=== PATIENT | male | born 1960 | race Caucasian/White ===

== ENCOUNTER 2023-05-25 07:55 | Outpatient (OUT) | payer OTHER, SELFPAY ==
--- NOTE | 2023-05-25 08:01 | US_ITS ---
The [address] [address] Patient Name: NELI TINSLEY MRN: [id number] date: 1960 Sex: M Assigned Patient Location: [place] Current Patient Location: [place] Accession/Order Number: [id number] Exam Date: 05/25/2023 08:02 Report Date: 05/25/2023 08:48 At the request of: ALTA ROBERTO Procedure: US abdominal aortic aneurysm EXAM: US abdominal aortic aneurysm HISTORY: . Abdominal Aortic Aneurysm I71.40 . COMPARISON: 05/02/2022 TECHNIQUE: Grayscale and color imaging was performed FINDINGS: Scanning of the aorta demonstrates the proximal aorta to measure 1.7 x 2.3 cm, mid aorta 2.6 x 2.6 cm, and the distal aorta 4.5 x 3.4 cm. Color-flow is noted throughout the aorta. Right iliac measures 1.4 cm and left iliac 1.3 cm. US/US abdominal aortic aneurysm IMPRESSION: Aneurysmal dilatation of the distal abdominal aorta which measures 4.5 x 3.4 cm. On the previous exam the distal aorta measured 4.2 x 4.6 cm. Electronically authenticated by: NIKO PONCE Date: 05/25/2023 08:48
== END 2023-05-25 07:56 | disposition home or self-care (01) ==
LOC: US 07:55
PROVIDERS: PCP Nurse Practitioner Family; Visit Provider Nurse Practitioner Family
DX: I71.40 Abdominal aortic aneurysm, without rupture, unspecified (principal)
CPT/HCPCS: 76775

== ENCOUNTER 2023-10-20 07:37 | Outpatient (OUT) | payer OTHER, SELFPAY ==
--- OUTSIDE RECORDS SUMMARY | 2023-10-20 07:42 | XMS_ITS ---
Patient Summarization (C-CDA 2.1 CCD) Created on: October 20, 2023 Mino Vanessa : 1960 Sex: Male Author Organization Sample organization Care Team Providers Care Wood Machinist Name Role Phone KIMMIE ROBERTO Primary Care Unavailable ABBAS, DR VILLARREAL Admitting Unavailable ABBAS, DR VILLARREAL Attending Unavailable ABBAS, DR VILLARREAL Consulting Unavailable CURT, DR NIKO Vasquez Consulting Unavailable FELISA, KIMMIE Attending Unavailable FELISA, KIMMIE Consulting Unavailable FELISA, KIMMIE Primary Care Unavailable FELISA, KIMMIE Admitting Unavailable FELISA, KIMMIE Attending Unavailable FELISA, KIMMIE Consulting Unavailable FELISA, KIMMIE Primary Care Unavailable FELISA, KIMMIE Admitting Unavailable FELISA, KIMMIE Attending Unavailable FELISA, KIMMIE Consulting Unavailable FELISA, KIMMIE Primary Care Unavailable FELISA, KIMMIE Admitting Unavailable MARY GARCIA Consulting Unavailable FELISA, KIMMIE Attending Unavailable FELISA, KIMMIE Consulting Unavailable FELISA, KIMMIE Primary Care Unavailable FELISA, KIMMIE Admitting Unavailable FELISA, KIMMIE Admitting Unavailable FELISA, KIMMIE Attending Unavailable FELISA, KIMMIE Primary Care Unavailable FELISA, KIMMIE Attending Unavailable FELISA, KIMMIE Consulting Unavailable FELISA, KIMMIE Primary Care Unavailable FELISA, KIMMIE Admitting Unavailable ABBAS, DR VILLARREAL Admitting Unavailable ABBAS, DR VILLARREAL Attending Unavailable ABBAS, DR VILLARREAL Consulting Unavailable FELISA, KIMMIE Primary Care Unavailable [place], DR NIKO Vasquez Consulting Unavailable Felisa, [employer] Kimmie Hernandez Primary Care Provider [phone] SARAH Jack Attending Provider Kimmie Roberto Primary Care Unavailable Leyda Jack Attending Unavailable Leyda Jack Admitting Unavailable Encounters Encounter Date Encounter Type Care Provider Facility Start: 10-07-2023 End: 10-07-2023 ambulatory [employer] Kimmie Roberto Work Phone: [facility] Work Phone: Start: 10-07-2023 End: 10-07-2023 Departed Referred [employer] Kimmie Roberto Work Phone: [facility] [place] Work Phone: Start: 10-07-2023 End: 10-07-2023 ambulatory [facility] Work Phone: Start: 10-07-2023 End: 10-07-2023 Patient encounter procedure [facility] Work Phone: Start: 05-02-2022 End: 05-03-[address] CHERELLE LARSEN Facility:[facility] Start: 02-07-2022 ambulatory KIMMIE ROBERTO Facility: [facility] Start: 02-01-2022 End: 02-01-2022 ambulatory KIMMIE ROBERTO Facility:[facility] Start: 01-24-2022 End: 01-24-2022 ambulatory KIMMIE ROBERTO Facility:[facility] Start: 01-20-2022 End: 01-21-2022 ambulatory KIMMIE ROBERTO Facility:[facility] Start: 12-20-2021 End: 12-20-2021 ambulatory KIMMIE ROBERTO Facility:[facility] Start: 05-11-2021 Encounter for genera l adult medical examination without abnormal findings KIMMIE ROBERTO [facility] Start: 05-10-2021 End: 05-11-2021 ambulatory KIMMIE ROBERTO Facility:[facility]1 Start: 05-10-2021 End: 05-11-2021 Encounter for general adult medical examination without abnormal findings KIMMIE ROBERTO Facility:[facility]1 Medications Current Medications Medication Drug Class(es) Dates Sig (Normalized) Sig (Original) amoxicillin 500 mg / clavulanate 125 mg oral tablet (2 sources) Penicillin-class Antibacterial Start: 10-07-2023 take 1 tablet by mouth three times daily Amoxicillin-Pot Clavulanate Active 1 TAB PO Three times daily 30 October 07, 2023 12:00am aspirin 81 mg delayed release oral tablet (2 sources) Platelet Aggregation Inhibitor, Nonsteroidal Anti-inflammatory Drug Start: 10-07-2023 take 81 mg by mouth once daily Aspirin Active 81 MG PO Daily October 07, 2023 12:00am atorvastatin 40 mg oral tablet (2 sources) HMG-CoA Reductase Inhibitor Start: 10-07-2023 take 40 mg by mouth once daily at bedtime Atorvastatin Active 40 MG PO Daily at bedtime October 07, 2023 12:00am glimepiride 4 mg oral tablet (2 sources) Sulfonylurea Start: 10-07-2023 take 4 mg by mouth once daily Glimepiride Active 4 MG PO Daily October 07, 2023 12:00am lisinopril 5 mg oral tablet (2 sources) Angiotensin Converting Enzyme Inhibitor Start: 10-07-2023 take 5 mg by mouth once daily Lisinopril Active 5 MG PO Daily October 07, 2023 12:00am metFORMIN hydrochloride 500 mg oral tablet (2 sources) Biguanide Start: 10-07-2023 take 500 mg by mouth twice daily at mealtime Metformin Active 500 MG PO Twice daily with meals October 07, 2023 12:00am Payers Date Payer Category Payer Self-pay 1961 Self-pay [id number] 1961 Unknown [id number] 1960 Unknown [id number] 2.16.84 [id number] 1960 Unknown [id number] 2.16.84 [id number] 1960 Unknown [id number] 2.16.84 [id number] 1960 Unknown [id number] 2.16.84 [id number] 1960 Unknown [id number] 2.16.84 [id number] 1960 Unknown [id number] 2.16.84 [id number] 1960 Unknown [id number] 2.16.84 [id number] 1960 Unknown [id number] 2.16.84 [id number] Unknown [id number] 2.16.8 [id number] Plan of Treatment Date Care Activity Detail Author Start: 10-08-2023 [facility] Start: 10-07-2023 Microscopic observat ion [Identifier] in Unspecified specimen by Gram stain [facility] Bacteria identified in Unspecified specimen by Aerobe culture [facility] Bacteria identified in Unspecified specimen by Anaerobe culture [facility] Problems Active Problems Problem Classification Problem Date Documented Da te Episodic/Chronic Aortic; peripheral; and visceral artery aneurysms (5 sources) Abdominal aortic aneurysm, without rupture; Translations: [ABDOMINAL AORTIC ANEUR W/O RUPTURED] Onset: 05-10-2021 Chronic Skin and subcutaneous tissue infections (5 sources) Abscess of buttock; Translations: [Cutaneous abscess of buttock] Onset: 10-07-2023 10-07-2023 Episodic Unclassified (3 sources) ABDOMINAL AA W/O RUPTURE UNSPCIFIED; Translations: [ABDOMINAL AA W/O RUPTURE UNSPCIFIED] Onset: 05-04-2022 Unclassified (3 sources) CONTACT W/AND (SUSP) EXPOS COVID-19; Translations: [CONTACT W/AND (SUSP) EXPOS COVID-19] Onset: 02-03-2022 Unclassified (3 sources) COUGH, UNSPECIFIED; Translations: [COUGH, UNSPECIFIED] Onset: 01-23-2022 Past or Other Problems Problem Classification Problem Date Documented Da te Episodic/Chronic Other screening for suspected conditions (not mental disorders or infectious disease) (1 source) Encounter for screening for malignant neoplasm of prostate; Translations: [ENC SCREEN MALIG NEOPLASM PROSTATE] Onset: 05-11-2021 Episodic Pneumonia (except that caused by tuberculosis or sexually transmitted disease) (1 source) Pneumonia, unspecified organism; Translations: [PNEUMONIA UNSPECIFIED ORGANISM] Onset: 01-23-2022 Episodic Unclassified (1 source) ABDOMINAL AA W/O RUPTURE UNSPCIFIED; Translations: [ABDOMINAL AA W/O RUPTURE UNSPCIFIED] Onset: 05-02-2022 Unclassified (1 source) CONTACT W/AND (SUSP) EXPOS COVID-19; Translations: [CONTACT W/AND (SUSP) EXPOS COVID-19] Onset: 02-01-2022 Unclassified (1 source) COUGH, UNSPECIFIED; Translations: [COUGH, UNSPECIFIED] Onset: 01-20-2022 Procedures Date Procedure Procedure Detail Performing Clinician Start: 05-10-2021 PSA screening KIMMIE PEREIRA Comment on above: Performed By: #### P [facility] ####[facility] Pnbanhjlkl13[address] StreetBooker Bianchi Results Test Name Value Interpretation Reference Range Facility Aerobic Cultureon 10-07-2023 Aerobic Culture (ABSCESS OF THE RIGH T BUTTOCK ) ORGANISM: Staphylococcus lugdunensis (O:STALUG) Quantity of Growth Moderate Growth (ABSCESS OF THE RIGHT BUTTOCK ) No Anaerobes Isolated 3 Days (ABSCESS OF THE RIGHT BUTTOCK ) Gram Stain Result 1+ White Blood Cells 1+ Gram Positive Cocci Aerobic JANELLE Charge (PCMIC38) --- SUSCEPTIBILITY -- ORGANISM: O:STALUG ANTIBIOTIC INTERPRETATION JANELLE Azithromycin S <2 Ciprofloxacin S <1 Clindamycin S <0.25 Daptomycin S <0.5 Levofloxacin S <1 Linezolid S <1 Oxacillin S 1 Penicillin ANABELLA >2 Tetracycline S <4 Trimethoprim/Sulfameth oxazole S <0.5 Vancomycin S 1 S = SUSCEPTIBLE I = INTERMEDIATE R = RESISTANT BLANK = DATA NOT AVAILABLE, OR DRUG NOT ADVISABLE OR TESTED R* = RESISTANCE DUE TO EXTENDED SPECTRUM BETA-LACTAMASES ESBL = EXTENDED SPECTRUM BETA-LACTAMASE TFG = THYMIDINE-DEPENDENT STRAIN ANABELLA = BETA-LACTAMASE POSITIVE IB = INDUCIBLE BETA-LACTAMASE. APPEARS IN PLACE OF 'S' WITH SPECIES KNOWN TO POSSESS INDUCIBLE BETA-LACTAMASES. POTENTIALLY THEY MAY BECOME RESISTANT TO ALL B-LACTAM DRUGS. PERFORMED BY: [place] [address] PATHOLOGIST MAJOR APPLIANCE ASSEMBLY SUPERVISOR SHAUN TORRES M.D. Normal [facility] Comment on above: Performed By: #### A [facility] #### [address] US ABD AORTA DIAGNOSTICon US ABD AORTA DIAGNOSTIC EXAMINATION: US ABD AORTA DIAGNOSTIC HISTORY: Abdominal aortic aneurysm COMPARISON: No relevant comparison available. TECHNIQUE: Ultrasound examination of the retroperitoneal area was performed, with a focused evaluation of the abdominal aorta. FINDINGS: Proximal aorta: 2.5 x 2.7 cm Mid aorta: 2.6 x 2.5 cm Distal aorta: 4.2 x 4.6 cm Right common iliac artery: 1.7 x 2.0 cm Left common iliac artery: 1.6 x 1.7 cm Normal color Doppler flow Mild to moderate soft and calcific atherosclerosis IMPRESSION: Fusiform aneurysm of the distal abdominal aorta measuring up to 4.2 x 4.6 cm Electronically authenticated by: NIKO ELIAS Date: 2022-05-02 11:16 Normal [facility] Covid-19 PCR (CVDTB)on 01-21 SARS-CoV-2 (COVID-19) RNA SUSANA+probe Ql (Unsp spec) Not detected Normal NOT DETECTED [facility] Comment on above: Result Comment: This test is not yet approved or cleared by the [place] FDA. When there are no FDA-approved or cleared tests available, and other criteria are met, FDA can make tests available under an emergency access mechanism called an Emergency Use Authorization (EUA). The EUA for this test is supported by the [place] of Health and Human Service's (HHS's) declaration that circumstances exist to justify the emergency use of in vitro diagnostics for the detection and/or diagnosis of the virus that causes COVID-19. This EUA will remain in effect (meaning this test can be used) for the duration of the COVID-19 declaration justifying emergency of IVDs, unless it is terminated or revoked by FDA (after which the test may no longer be used). When diagnostic testing is negative, the possibility of a false negative should be considered in the context of a patient's recent exposures and the presence of clinical signs and symptoms consistent with SARS-CoV-2. Performed By: #### [facility] #### [facility] [address] [place] [address] Dr. Vasyl Bianchi Covid-19 PCR (CVDTBH)on SARS-CoV-2 (COVID-19) RNA SUSANA+probe Ql (Unsp spec) Not detected Normal NOT DETECTED [facility] Comment on above: Result Comment: When diagnostic testing is negative, the possibility of a false negative should be considered in the context of a patient's recent exposures and the presence of clinical signs and symptoms consistent with SARS-CoV-2. This test is not yet approved or cleared by the [place] FDA. When there are no FDA-approved or cleared tests available, and other criteria are met, FDA can make tests available under an emergency access mechanism called an Emergency Use Authorization (EUA). The EUA for this test is supported by the [place] of Health and Human Service's declaration that circumstances exist to justify the emergency use of in vitro diagnostics for the detection and/or diagnosis of the virus that causes COVID-19. This EUA will remain in effect for the duration of the COVID-19 declaration justifying emergency of IVDs, unless it is terminated or revoked by the FDA (after which the test may no longer be used). Performed By: #### C [facility] #### [facility] [address] [place] [address] Dr. Vasyl Bianchi XR CHEST 2 Von 01-20-2022 XR CHEST 2 V EXAM: CHEST 2 VIEWS HISTORY: Cough TECHNIQUE: PA and lateral views chest. COMPARISON: 04/25/2021 FINDINGS: There is moderate size area of right middle lobe consolidation. The left lung is clear. No pleural effusion or pneumothorax. Pulmonary vasculature is within normal limits. The cardiomediastinal silhouette is normal. There is fusion instrumentation in the cervical spine. IMPRESSION: 1. Right middle lobe pneumonia. Recommend clinical and radiographic follow-up to resolution with treatment. Electronically authenticated by: MARY GARCIA Date: 2022-01-20 17:44 Normal [facility] PCR [facility]on 11-23 SARS-CoV-2 (COVID-19) RNA SUSANA+probe Ql (Unsp spec) Not detected Normal NOT DETECTED [facility] Comment on above: Result Comment: This test is not yet approved or cleared by the [place] FDA. When there are no FDA-approved or cleared tests available, and other criteria are met, FDA can make tests available under an emergency access mechanism called an Emergency Use Authorization (EUA). The EUA for this test is supported by the [place] of Health and Human Service's (HHS's) declaration that circumstances exist to justify the emergency use of in vitro diagnostics for the detection and/or diagnosis of the virus that causes COVID-19. This EUA will remain in effect (meaning this test can be used) for the duration of the COVID-19 declaration justifying emergency of IVDs, unless it is terminated or revoked by FDA (after which the test may no longer be used). When diagnostic testing is negative, the possibility of a false negative should be considered in the context of a patient's recent exposures and the presence of clinical signs and symptoms consistent with SARS-CoV-2. Performed By: #### C [facility] #### [facility] [address] [place] [address] Dr. Vasyl Bianchi INSULINon 05-11-2021 Insulin 17.0 uIU/mL Normal 2.6-24.9 [facility] Comment on above: Performed By: #### I NSULIN #### [facility] [address] [place] [address] Dr. Vasyl Bianchi CBC AUTO DIFFon 05-10-2021 BASO # 0.0 103/ul Normal 0.0-0.1 [facility] Comment on above: Performed By: #### C BC ####[facility] Z[address] [place], [place] [address]Dr. Vasyl Bianchi Basophils/100 WBC (Bld) 0.3 % Normal 0.2-2.0 [facility] Comment on above: Performed By: #### C BC ####[facility] [address] [place], [place] [address]DrBooker Bianchi EO # 0.2 103/ul Normal 0.0-0.7 [facility] Comment on above: Performed By: #### C BC ####[facility] Ldcstdiojy[address] [place], [place] [address]DrBooker Bianchi Eosinophils/100 WBC (Bld) 3.0 % Normal 0.9-7.0 [facility] Comment on above: Performed By: #### C BC ####[facility] [address] [place], [place] [address]DrBooker Bianchi Erythrocyte distribution width (RBC) [Ratio] 13.6 % Normal 11.0-15.0 [facility] Comment on above: Performed By: #### C BC ####[facility] [address] [place] [address]Dr. Vasyl Bianchi Hematocrit (Bld) [Volume fraction] 39.5 % Critically low 42.0-54.0 [facility] Comment on above: Performed By: #### C BC ####[facility] [address] [place] [address]Dr. Jillria Bianchi Hemoglobin (Bld) [Mass/Vol] 13.2 g/dL Critically low 14.0-18.0 [facility] Comment on above: Performed By: #### C BC ####[facility] L[address]yt[address]xt[address] [place], [place] [address]Dr. Vasyl Bianchi IG # 0.02 10e3/ul Normal 0.00-0.03 [facility] Comment on above: Performed By: #### C BC ####[facility] [address] [place], [place] [address]Dr. Vasyl Bianchi IG % 0.3 % Normal 0.0-0.5 [facility] Comment on above: Performed By: #### C BC ####[facility] Cmzegr[address]xm[address] [place], [place] [address]Dr. Jillria Bianchi LYMPH # 1.5 103/ul Normal 1.2-3.8 [facility] Comment on above: Performed By: #### C BC ####[facility] X[address] [place], [place] [address]Dr. Vasyl Bianchi Lymphocytes/100 WBC (Bld) 20.6 % Normal 20.5-60.0 [facility] Comment on above: Performed By: #### C BC ####[facility] [address] [place], [place] [address]Dr. Vasyl Bianchi MANUAL DIFF REQ NO Normal [facility] Comment on above: Performed By: #### C BC ####[facility] Vhin[address]qmwy[address] [place], [place] [address]DrBooker Bianchi MCH (RBC) [Entitic mass] 30.6 pg Normal 25.9-34.0 [facility] Comment on above: Performed By: #### C BC ####[facility] Ewmvomqwet[address] [place], [place] [address]Dr. Vasyl Arias MCHC (RBC) [Mass/Vol] 33.4 g/dL Normal 29.9-35.2 [facility] Comment on above: Performed By: #### C BC ####[facility] [address] [place] [address]Dr. Vasyl Bianchi MCV (RBC) [Entitic vol] 91.6 fL Normal 80.0-94.0 [facility] Comment on above: Performed By: #### C BC ####[facility] [address] [place] [address]Dr. Vasyl Bianchi MONO # 0.5 103/ul Normal 0.3-0.8 [facility] Comment on above: Performed By: #### C BC ####[facility] V[address]znbwxq[address] [place], [place] [address]Dr. Vasyl Bianchi Monocytes/100 WBC (Bld) 6.8 % Normal 1.7-12.0 [facility] Comment on above: Performed By: #### C BC ####[facility] [address] [place], [place] [address]Dr. Vasyl Bianchi NEUT # 5.1 103/ul Normal 1.4-6.5 [facility] Comment on above: Performed By: #### C BC ####[facility] U[address] [place], [place] [address]Dr. Vasyl Bianchi Neutrophils/100 WBC (Bld) 69.0 % Normal 43.0-75.0 [facility] Comment on above: Performed By: #### C BC ####[facility] I[address] [place], [place] [address]Dr. Vasyl Bianchi Platelet mean volume (Bld) [Entitic vol] 10.4 fL Normal 9.5-13.5 [facility] Comment on above: Performed By: #### C BC ####[facility] [address] [place], [place] [address]Dr. Vasyl Bianchi PLT 167 103/ul Normal 150-450 [facility] Comment on above: Performed By: #### C BC ####[facility] [address] [place] [address]Dr. Vasyl Bianchi RBC 4.31 106/ul Critically low 4.70-6.10 [facility] Comment on above: Performed By: #### C BC ####[facility] [address] [place], [place] [address]Dr. Vasyl Bianchi WBC 7.3 103/ul Normal 4.0-11.0 [facility] Comment on above: Performed By: #### C BC ####[facility] [address] [place] [id number]. Vasyl Bianchi GLYCOHEMOGLOBIN A1Con 2021 ADA RECOMMENDATION ADA THERAPEUTIC TARG ET 6.0 - 7.0 ACTION SUGGESTED > 7.0 Normal [facility] Comment on above: Performed By: #### A 1C #### [facility] [address] [place] [address] [address] Vasyl Bianchi Glucose [Mass/Vol] 235 mg/dL Normal [facility] Comment on above: Performed By: #### A 1C #### [facility] [address] [address] [address] Vasyl Bianchi HbA1c (Bld) [Mass fraction] 9.8 % Critically high <=6.0 [facility] Comment on above: Performed By: #### A 1C #### [facility] [address] [address] [address] Vasyl Bianchi LIPID PROFILEon 05-10-2021 CHOL-HDL RATIO NORM SEE BELOW Normal [facility] Comment on above: Result Comment: 3.3 - 4.4 LOW RISK 4.4 - 7.1 AVERAGE RISK 7.1 - 11.0 MODERATE RISK >11.0 HIGH RISK Performed By: #### C MP, LIPID #### [facility] [address] [address] [address] Vasyl Bianchi Cholesterol [Mass/Vol] 111 mg/dL Normal <=200 [facility] Comment on above: Performed By: #### C MP, LIPID #### [facility] [address] [address] [address] Vasyl Bianchi Cholesterol in HDL [Mass/Vol] 33 mg/dL Normal [facility] Comment on above: Performed By: #### C MP, LIPID #### [facility] [address] [address] [address] Vasyl Bianchi Cholesterol in LDL [Mass/Vol] 46.2 mg/dL Normal [facility] Comment on above: Performed By: #### C MP, LIPID #### [facility] [address] [address] [address] Vasyl Bianchi Cholesterol.total/Ch olesterol in HDL [Mass ratio] 3.4 {ratio} Normal [facility] Comment on above: Performed By: #### C MP, LIPID #### [facility] [address] [address] [address] Vasyl Bianchi HDL NORMAL > or = 60 mg/dl - LO W CARDIOVASCULAR RISK <40 mg/dl - HIGH CARDIOVASCULAR RISK Normal [facility] Comment on above: Performed By: #### C MP, LIPID #### [facility] [address] [place] [address] Dr. Vasyl Bianchi LDL CALC NORMAL SEE BELOW Normal [facility] Comment on above: Result Comment: <100 mg/dl OPTIMAL 100 - 129 mg/dl NEAR OR ABOVE OPTIMAL 130 - 159 mg/dl BORDERLINE HIGH 160 - 189 mg/dl HIGH >190 mg/dl VERY HIGH Performed By: #### C MP, LIPID #### [facility] [address] [place] [address] Dr. Vasyl Bianchi Triglyceride [Mass/Vol] 159 mg/dL Critically high <=150 [facility] Comment on above: Performed By: #### C MP, LIPID #### [facility] [address] [place] [address] Dr. Vasyl Bianchi VLDL CALC 31.8 mg/dL Normal [facility] Comment on above: Performed By: #### C MP, LIPID #### [facility] [address] [place] [address] Dr. Vasyl Bianchi PROF 14(COMP METB)on 022 Albumin [Mass/Vol] 3.6 g/dL Normal 3.5-5.0 [facility] Comment on above: Performed By: #### C MP, LIPID #### [facility] [address] [place] [address] Dr. Vasyl Bianchi Albumin/Globulin [Mass ratio] 1.0 {ratio} Normal [facility] Comment on above: Performed By: #### C MP, LIPID #### [facility] [address] [address] [address] Vasyl Bianchi ALP [Catalytic activity/Vol] 74 U/L Normal 38-126 [facility] Comment on above: Performed By: #### C MP, LIPID #### [facility] [address] [place] [address] Dr. Vasyl Bianchi ALT [Catalytic activity/Vol] 41 U/L Normal 21-72 [facility] Comment on above: Performed By: #### C MP, LIPID #### [facility] [address] [place] [address] Dr. Vasyl Bianchi Anion gap [Moles/Vol] 13.2 mmol/L Normal [facility] Comment on above: Performed By: #### C MP, LIPID #### [facility] [address] [place] [address] Dr. Vasyl Bianchi AST [Catalytic activity/Vol] 19 U/L Normal 17-59 [facility] Comment on above: Performed By: #### C MP, LIPID #### [facility] [address] [place] [address] Dr. Vasyl Bianchi Bilirubin [Mass/Vol] 1.1 mg/dL Normal 0.2-1.3 [facility] Comment on above: Performed By: #### C MP, LIPID #### [facility] [address] [place] [address] Dr. Vasyl Bianchi Calcium [Mass/Vol] 9.4 mg/dL Normal 8.4-10.2 [facility] Comment on above: Performed By: #### C MP, LIPID #### [facility] [address] [place] [address] Dr. Vasyl Bianchi Chloride [Moles/Vol] 102 mmol/L Normal 98-107 [facility] Comment on above: Performed By: #### C MP, LIPID #### [facility] Laboratory [address] [place], [place] [id number] Dr. Vasyl Bianchi CO2 [Moles/Vol] 28.0 mmol/L Normal 22.0-30.0 [facility] Comment on above: Performed By: #### C MP, LIPID #### [facility] [address] [place] [address] Dr. Vasyl Bianchi Creatinine [Mass/Vol] 1.11 mg/dL Normal 0.66-1.25 [facility] Comment on above: Performed By: #### C MP, LIPID #### [facility] [address] [place] [address] Dr. Vasyl Bianchi EGFR-AF WALLISIAN >60 Normal >=60 [facility] Comment on above: Performed By: #### C MP, LIPID #### [facility] [address] [place] [address] Dr. Vasyl Bianchi EGFR-NON AF WALLISIAN >60 Normal >=60 [facility] Comment on above: Performed By: #### C MP, LIPID #### [facility] [address] [place] [address] Dr. Vasyl Bianchi Globulin (S) [Mass/Vol] 3.7 g/dL Normal [facility] Comment on above: Performed By: #### C MP, LIPID #### [facility] [address] [place] [address] Dr. Vasyl Bianchi Glucose [Mass/Vol] 151 mg/dL Critically high 74-106 T [facility] Comment on above: Performed By: #### C MP, LIPID #### [facility] [address] [place] [address] Dr. Vasyl Bianchi Potassium [Moles/Vol] 4.2 mmol/L Normal 3.4-5.0 [facility] Comment on above: Performed By: #### C MP, LIPID #### [facility] [address] [place] [address] Dr. Vasyl Bianchi Protein [Mass/Vol] 7.3 g/dL Normal 6.1-8.2 [facility] Comment on above: Performed By: #### C MP, LIPID #### [facility] [address] [place] [address] Dr. Vasyl Bianchi Sodium [Moles/Vol] 139 mmol/L Normal 137-145 [facility] Comment on above: Performed By: #### C MP, LIPID #### [facility] [address] [address] [address] Vasyl Bianchi Urea nitrogen [Mass/Vol] 17.0 mg/dL Normal 9.0-20.0 [facility] Comment on above: Performed By: #### C MP, LIPID #### [facility] [address] [address] [address] Vasyl Bianchi Urea nitrogen/Creatinine [Mass ratio] 15.3 mg/mg Normal [facility] Comment on above: Performed By: #### C MP, LIPID #### [facility] [address] [address] [address] Vasyl Bianchi US ABD AORTA DIAGNOSTICon US ABD AORTA DIAGNOSTIC EXAMINATION: US ABD AORTA DIAGNOSTIC HISTORY: Abdominal aortic aneurysm COMPARISON: 05/17/2020 TECHNIQUE: Ultrasound examination of the retroperitoneal area was performed, with a focused evaluation of the abdominal aorta. FINDINGS: Proximal aorta: 2.2 x 2.5 cm Mid aorta: 2.9 x 2.8 cm Distal aorta: 4.7 x 4.1 cm, fusiform aneurysm Right common iliac artery: 1.0 x 1.4 cm Left common iliac artery: 1.0 x 1.2 cm Extensive soft and calcific atherosclerotic plaque Normal color and Doppler ultrasound IMPRESSION: Fusiform aneurysm of the mid to distal abdominal aorta measuring up to 4.7 x 4.1 cm Electronically authenticated by: NIKO ELIAS Date: 2021-05-10 09:40 Normal [facility] WRIST RIGHT 3 VWSon 12-15-19 21 WRIST RIGHT 3 [facility] Department of Radiology [address] [place] [id number] ======== Patient Name: MINO VANESSA Kim DYE: 1960 Sex: M Age: Race: White Pt. Location: Patient Status: D Ordered Date: 12/14/2020 4:20:00 PM Completed Date: 12/14/2020 04:29 PM Requesting Provider: SELWYN MADRIGAL Attending Provider: SELWYN MADRIGAL Report Copy To: DEISY BRICENO JR Signs & Symptoms: M25.531 Pain in right wrist I10 History: [place] Comments: evaluate Exam: WRIST RIGHT 3 VWS ======== WRIST RIGHT 3 VWS HISTORY: Wrist pain. COMPARISON: None. IMPRESSION: 1. Postoperative changes from trapezium resection, small osseous densities at the expected location of the trapezium likely from remote surgery. 2. 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 Osteopenia. No acute fracture. No dislocation. Electronically signed: Antonio Horta. Transcribed by: [email or web address], User Resident: Electronically Signed by: ANTONIO HORTA @ 12/15/2020 02:23 PM Normal [facility] Comment on above: Order Comment: evalu ate Social History Date Type Detail Facility [facility]: [facility] Start: 1960 Sex Assigned At Male F [facility] Vital Signs Date Time Vital Sign Value Performing Clinician Faci lity 10-07-2023 14: Body height 198.12 cm [facility] 10-07-2023 14: Body mass index (BMI) [Ratio] 27.3 kg/m2 [facility] 10-07-2023 14: Body temperature 98.9 [degF] [facility] 10-07-2023 14: Body weight 107.55 kg [facility] 10-07-2023 14:21-0400 Diastolic blood pressure 78 mm[Hg] [facility] 10-07-2023 14:21-0400 Heart rate 98 /min [facility] 10-07-2023 14:21-0400 Respiratory rate 18 /min [facility] 10-07-2023 14:21-0400 SaO2% (BldA) [Mass fraction] 97 % [facility] 10-07-2023 14:21-0400 Systolic blood pressure 148 mm[Hg] [facility] Evaluation note Note Date & Type Note Facility Evaluation note Diagnosis Onset Date Abscess of right buttock acu te [facility] Work Phone: Summary Purpose Family History No Family History Records Found Relationship Condition Age at Onset Recorded Date/T germán father Heart disease Unknown Advance Directives No Advanced Directives Records Found Advance Directive Response Recorded Date/ Time Advance Directives No October 06 1:54pm Chief Complaint and Reason for Visit Chief Complaint painful bump on butt ocks Reason for Visit Abscess of right but tock Chief Complaint painful bump on butt ocks L02.31 Reason for Visit Abscess of right but tock Additional Source Comments (unrecognized sect ion and content) No Status Records FoundNo Status Records FoundNo Status Records Found INFORMATION SOURCE (unrecogn ized section and content) DATE CREATED AUTHOR 07/24/2021 [facility] DATE CREATED AUTHOR AUTHOR'S ORGANIZ ATION 05/04/2022 [facility] DATE CREATED AUTHOR AUTHOR'S ORGANIZ ATION 10/11/2023 [facility] Care Teams (unrecognized sec tion and content) Team Status: Active Member Role Status Dates NAHOMY Lewis Primary Care Provider Active Team Status: Inactive Member Role Status Dates Leyda Jack APRN Attending Provider Active Start: October 07, 2023 End: October 07, 2023 NAHOMY Lewis Primary Care Provider Active Start: October 07, 2023 End: October 07, 2023 Team Status: Inactive Member Role Status Dates NAHOMY Lewis Primary Care Provider Active Start: October 07, 2023 End: October 07, 2023 Leyda Jack APRN Attending Provider Active Start: October 07, 2023 End: October 07, 2023 Goals (unrecognized section and content) Goals may be documented in a n alternate sectionGoals may be documented in an alternate section FOR RECORDS PERTAINING TO PATIENTS WHO ARE OR HAVE BEEN ENROLLED IN A CHEMICAL DEPENDENCY/SUBSTANCEABUSE PROGRAM, SOME INFORMATION MAY BE OMITTED. This clinical summary was aggregated from multiple sources. Caution should be exercised in using it in the provision of clinical care. This summary normalizes information from multiple sources, and as a consequence, information in this document may materially change the coding, format and clinical context of patient data. In addition, data may be omitted in some cases. CLINICAL DECISIONS SHOULD BE BASED ON THE PRIMARY CLINICAL RECORDS. [facility] [employer] provides no warranty or guarantee of the accuracy or completeness of information in this document.
--- NOTE | 2023-10-20 07:55 | XR_ITS ---
The [address] [address] Patient Name: NELI TINSLEY MRN: [id number] date: 1960 Sex: M Assigned Patient Location: LAB Current Patient Location: Accession/Order Number: [id number] Exam Date: 10/20/2023 08:05 Report Date: 10/22/2023 13:56 At the request of: ALTA ROBERTO Procedure: XR foot LT min 3V PROCEDURE: XR foot LT min 3V COMPARISON: None. HISTORY: Left foot pain M79.672 FINDINGS: BONES:Transverse sclerosis identified along the distal diaphysis of the first proximal phalanx consistent with a subacute healing fracture. No distraction or angulation. No extension to an articular surface. Mild plantar enthesopathic spurring of the calcaneus SOFT TISSUES:Negative. No visible soft tissue swelling. EFFUSION:None visible. OTHER: Negative. XR/XR foot LT min 3V IMPRESSION: Subacute healing fracture distal diaphysis of the first proximal phalanx Electronically authenticated by: NIKO ELIAS Date: 10/22/2023 13:56
[2023-10-20 08:26] LABS: Basophils Percent Auto 0.5 % (0.2-2.0); Eosinophils Absolute Auto 0.2 10^3/uL (0.0-0.7); Eosinophils Percent Auto 2.6 % (0.9-7.0); Hematocrit 41.8 % (42.0-54.0); Hemoglobin 13.9 g/dL (14.0-18.0); Immature Granulocytes Abs Auto 0.02 10^3/uL (0.00-0.03); Immature Granulocytes Pct Auto 0.3 % (0.0-0.5); Lymphocytes Absolute Auto 1.6 10^3/uL (1.2-3.8); Lymphocytes Percent Auto 21.5 % (20.5-60.0); Mean Corpuscular HGB Conc 33.3 g/dL (29.9-35.2); Mean Corpuscular Hemoglobin 30.2 pg (25.9-34.0); Mean Corpuscular Volume 90.9 fL (80.0-94.0); Mean Platelet Volume 10.4 fL (9.5-13.5); Monocytes Absolute Auto 0.4 10^3/uL (0.3-0.8); Monocytes Percent Auto 5.5 % (1.7-12.0); Neutrophils Absolute Auto 5.3 10^3/uL (1.4-6.5); Neutrophils Percent Auto 69.6 % (43.0-75.0); Platelet Count 173 10^3/uL (150-450); Red Cell Distribution Width 13.2 % (11.0-15.0); White Blood Count 7.6 10^3/uL (4.0-11.0)
[2023-10-20 09:10] LABS: Alanine Aminotransferase 34 U/L (16-63); Albumin Level 3.6 g/dL (3.4-5.0); Alkaline Phosphatase 94 U/L (46-116); Aspartate Amino Transferase 20 U/L (15-37); BUN Creatinine Ratio 18.6; Bilirubin Total 1.1 mg/dL (0.2-1.0); Calcium 9.1 mg/dL (8.5-10.1); Carbon Dioxide 29.6 mmol/L (21.0-32.0); Chloride 104 mmol/L (98-107); Cholesterol 136 mg/dL (<=200); Estimated GFR (African America >60 (>=60); Estimated GFR (Non-African Ame >60 (>=60); Globulin 3.6 g/dL; Glucose 218 mg/dL (74-106); HDL Cholesterol 34 mg/dL (40-60); Potassium 4.6 mmol/L (3.5-5.1); Sodium 140 mmol/L (136-145); Total Protein 7.2 g/dL (6.4-8.2); Triglycerides 255 mg/dL (<=150)
[2023-10-20 09:13] LABS: Estimated Average Glucose 275 mg/dL; Glycohemoglobin A1C 11.2 % (4.5-6.2)
[2023-10-22 14:10] LABS: Insulin 22.1 uIU/mL (2.6-24.9)
== END 2023-10-20 07:38 | disposition home or self-care (01) ==
PROVIDERS: PCP Nurse Practitioner Family; Visit Provider Nurse Practitioner Family
DX: Z00.00 Encounter for general adult medical examination without abnormal findings (principal); M79.672 Pain in left foot; S92.415D Nondisplaced fracture of proximal phalanx of left great toe, subsequent encounter for fracture with routine healing
CPT/HCPCS: 36415; 73630; 80053; 80061; 83036; 83525; 84153; 85025

== ENCOUNTER 2023-12-03 08:03 | Outpatient (OUT) | payer OTHER, SELFPAY ==
--- NOTE | 2023-12-03 | XR_ITS ---
The [address] [address] Patient Name: NELI TINSLEY MRN: [id number] date: 1960 Sex: M Assigned Patient Location: Current Patient Location: Accession/Order Number: [id number] Exam Date: 12/03/2023 08:08 Report Date: 12/05/2023 06:17 At the request of: NELI NEW Procedure: XR foot LT min 3V PROCEDURE: XR foot LT min 3V HISTORY: LEFT FOOT PAIN COMPARISON: XR foot left 10/20/2023 FINDINGS: BONES:Increasing sclerosis and callus formation surrounding the diaphysis of the first proximal phalanx consistent with healing fracture. Normal alignment is maintained. SOFT TISSUES:No visible soft tissue swelling. EFFUSION:None visible. OTHER: Negative. XR/XR foot LT min 3V IMPRESSION: 1. Stable alignment and ongoing bone healing of first proximal phalanx fracture. Electronically authenticated by: NELI GONSALEZ Date: 12/05/2023 06:17
--- OUTSIDE RECORDS SUMMARY | 2023-12-03 08:09 | XMS_ITS | CCD ---
Author Organization [facility] Care Team Providers Care Wire Worker Name Role Phone KIMMIE ROBERTO Primary Care [...] Consulting Unavailable FELISA, KIMMIE Primary Care Unavailable CURT, DR NIKO Vasquez Consulting Unavailable Felisa, COMMUNITY SERVICE ORGANIZATION DIRECTOR-C Kimmie Hernandez Primary Care Provider SARAH Jack Attending Provider Kimmie Roberto Primary Care Unavailable Leyda Jack Attending Unavailable Leyda Jack Admitting Unavailable Medications Current Medications Medication Drug Class(es) Dates Sig (Normalized) Sig (Original) amoxicillin 500 mg / clavulanate 125 mg oral tablet (2 sources) Penicillin-class Antibacterial Start: 10-07-2023 take 1 tablet by mouth three times daily Amoxicillin-Pot Clavulanate Active 1 TAB PO Three times daily 30 10 October 07, 2023 12:00am aspirin 81 mg [...] daily with meals October 07, 2023 12:00am Problems Active Problems Problem Classification Problem Date [...] COUGH, UNSPECIFIED; Translations: [COUGH, UNSPECIFIED] Onset: 01-20-2022 Results Test Name Value Interpretation Reference Range [...] RESISTANT TO ALL B-LACTAM DRUGS. PERFORMED BY: [place] [address] PATHOLOGIST ELECTRONIC HEAT SEAL OPERATOR SHAUN TORRES M.D. Normal The [facility] Comment on above: Performed By: #### A ERC #### [address] US ABD AORTA DIAGNOSTICon US ABD [...] NIKO ELIAS Date: 2022-05-02 11:16 Normal The [facility] Covid-19 PCR (CVDTB)on 01-21 SARS-CoV-2 (COVID-19) RNA SUSANA+probe Ql (Unsp spec) Not detected Normal NOT DETECTED The [facility] Comment on above: Result Comment: This test is not yet approved or cleared by the [place] FDA. When there are no FDA-approved or cleared tests available, and other criteria are met, FDA can make tests available under an emergency access mechanism called an Emergency Use Authorization (EUA). The EUA for this test is supported by the Gravity Meter Operator of Health and Human Service's (HHS's) declaration [...] SARS-CoV-2. Performed By: #### C VDTBH #### [facility] Laboratory [address] [place] [id number] Vaysl Bianchi Covid-19 PCR (CVDTB)on SARS-CoV-2 (COVID-19) RNA SUSANA+probe Ql (Unsp spec) Not detected Normal NOT DETECTED The [facility] Comment on above: Result Comment: When diagnostic [...] for this test is supported by the Gravity Meter Operator of Health and Human Service's declaration that [...] longer be used). Performed By: #### C VDTBH #### [facility] Laboratory [address] [place], [place] [id number] Dr. Vsayl Bianchi XR CHEST 2 Von 01-20-2022 XR [...] MARY GARCIA Date: 2022-01-20 17:44 Normal The [facility] Covid-19 PCR (CVDTBH)on 11-23 SARS-CoV-2 (COVID-19) RNA SUSANA+probe Ql (Unsp spec) Not detected Normal NOT DETECTED The [facility] Comment on above: Result Comment: This test is not yet approved or cleared by the [place] FDA. When there are no FDA-approved or cleared tests available, and other criteria are met, FDA can make tests available under an emergency access mechanism called an Emergency Use Authorization (EUA). The EUA for this test is supported by the Gravity Meter Operator of Health and Human Service's (HHS's) declaration [...] SARS-CoV-2. Performed By: #### C VDTBH #### [facility] Laboratory [address] [place] [address] Dr. Vasyl Bianchi INSULINon 05-11-2021 Insulin 17.0 uIU/mL Normal 2.6-24.9 The [facility] Comment on above: Performed By: #### I NSULIN #### [facility] Laboratory [address] [place] [address] Dr. Vasyl Bianchi CBC AUTO DIFFon 05-10-2021 BASO # 0.0 103/ul Normal 0.0-0.1 The [facility] Comment on above: Performed By: #### C BC ####[facility] [address] [place], [place] [address]Dr. Vasyl Bianchi Basophils/100 WBC (Bld) 0.3 % Normal 0.2-2.0 The [facility] Comment on above: Performed By: #### C BC ####[facility] [address] [place], [place] [address]Dr. Vasyl Bianchi EO # 0.2 103/ul Normal 0.0-0.7 The [facility] Comment on above: Performed By: #### C BC ####[facility] [address] [place], [place] [address]Dr. Vasyl Bianchi Eosinophils/100 WBC (Bld) 3.0 % Normal 0.9-7.0 The [facility] Comment on above: Performed By: #### C BC ####[facility] [address] [address]Dr. Vasyl Bianchi Erythrocyte distribution width (RBC) [Ratio] 13.6 % Normal 11.0-15.0 The [facility] Comment on above: Performed By: #### C BC ####[facility] [address] [address]Dr. Vasyl Bianchi Hematocrit (Bld) [Volume fraction] 39.5 % Critically low 42.0-54.0 The [facility] Comment on above: Performed By: #### C BC ####[facility] [address] [place], [place] [address]Dr. Vasyl Bianchi Hemoglobin (Bld) [Mass/Vol] 13.2 g/dL Critically low 14.0-18.0 The [facility] Comment on above: Performed By: #### C BC ####[facility] [address] [place], [place] [address]Dr. Vasyl Bianchi IG # 0.02 10e3/ul Normal 0.00-0.03 The [facility] Comment on above: Performed By: #### C BC ####[facility] [address] [place], [place] [address]Dr. Vasyl Bianchi IG % 0.3 % Normal 0.0-0.5 The [facility] Comment on above: Performed By: #### C BC ####[facility] [address] [place], [place] [address]Dr. Vasyl Bianchi LYMPH # 1.5 103/ul Normal 1.2-3.8 The [facility] Comment on above: Performed By: #### C BC ####[facility] [address] [place], [place] [address]Dr. Vasyl Bianchi Lymphocytes/100 WBC (Bld) 20.6 % Normal 20.5-60.0 The [facility] Comment on above: Performed By: #### C BC ####[facility] [address] [address]Dr. Jillria Bianchi MANUAL DIFF REQ NO Normal The [facility] Comment on above: Performed By: #### C BC ####[facility] [address] [address]Dr. Vasyl Bianchi MCH (RBC) [Entitic mass] 30.6 pg Normal 25.9-34.0 The [facility] Comment on above: Performed By: #### C BC ####[facility] [address] [address]Dr. Vasyl Arias MCHC (RBC) [Mass/Vol] 33.4 g/dL Normal 29.9-35.2 The [facility] Comment on above: Performed By: #### C BC ####[facility] [address] [place], [place] [address]Dr. Jillria Bianchi MCV (RBC) [Entitic vol] 91.6 fL Normal 80.0-94.0 The [facility] Comment on above: Performed By: #### C BC ####[facility] [address] [place], [place] [address]Dr. Vasyl Arias MONO # 0.5 103/ul Normal 0.3-0.8 The [facility] Comment on above: Performed By: #### C BC ####[facility] [address] [place], [place] [address]Dr. Vasyl Bianchi Monocytes/100 WBC (Bld) 6.8 % Normal 1.7-12.0 The [facility] Comment on above: Performed By: #### C BC ####[facility] [address] [address]Dr. Vasyl Bianchi NEUT # 5.1 103/ul Normal 1.4-6.5 The [facility] Comment on above: Performed By: #### C BC ####[facility] [address] [place], [place] [address]Dr. Vasyl Bianchi Neutrophils/100 WBC (Bld) 69.0 % Normal 43.0-75.0 The [facility] Comment on above: Performed By: #### C BC ####[facility] [address] [address]Dr. Vasyl Bianchi Platelet mean volume (Bld) [Entitic vol] 10.4 fL Normal 9.5-13.5 [facility] Comment on above: Performed By: #### C BC ####[facility] [address] [address]Dr. Vasyl Bianchi PLT 167 103/ul Normal 150-450 The [facility] Comment on above: Performed By: #### C BC ####[facility] [address] [address]Dr. Vasyl Bianchi RBC 4.31 106/ul Critically low 4.70-6.10 [facility] Comment on above: Performed By: #### C BC ####[facility] [address] [address]Dr. Vasyl Bianchi WBC 7.3 103/ul Normal 4.0-11.0 [facility] Comment on above: Performed By: #### C BC ####[facility] [address] [place] [address]DrBooker Bianchi GLYCOHEMOGLOBIN A1Con 2021 ADA RECOMMENDATION ADA THERAPEUTIC TARG ET 6.0 - 7.0 ACTION SUGGESTED > 7.[address] [facility] Comment on above: Performed By: #### A 1C #### [facility] Laboratory [address] [address] [address] Vasyl Bianchi Glucose [Mass/Vol] 235 mg/dL Normal [facility] Comment on above: Performed By: #### A 1C #### [facility] Laboratory [address] [address] [address] Vasyl Bianchi HbA1c (Bld) [Mass fraction] 9.8 % Critically high <=6.0 [facility] Comment on above: Performed By: #### A 1C #### [facility] Laboratory [address] [address] [address] Vasyl Bianchi LIPID PROFILEon 05-10-2021 CHOL-HDL RATIO NORM SEE BELOW Normal [facility] Comment on above: Result Comment: 3.3 - 4.4 LOW RISK 4.4 - 7.1 AVERAGE RISK 7.1 - 11.0 MODERATE RISK >11.0 HIGH RISK Performed By: #### C MP, LIPID #### [facility] Laboratory [address] [address] [address] Vasyl Bianchi Cholesterol [Mass/Vol] 111 mg/dL Normal <=200 [facility] Comment on above: Performed By: #### C MP, LIPID #### [facility] Laboratory [address] [address] [address] Vasyl Bianchi Cholesterol in HDL [Mass/Vol] 33 mg/dL Normal [facility] Comment on above: Performed By: #### C MP, LIPID #### [facility] Laboratory [address] [address] [address] Vasyl Bianchi Cholesterol in LDL [Mass/Vol] 46.2 mg/dL Normal [facility] Comment on above: Performed By: #### C MP, LIPID #### [facility] Laboratory [address] [address] [address] Vasyl Bianchi Cholesterol.total/Ch olesterol in HDL [Mass ratio] 3.4 {ratio} Normal [facility] Comment on above: Performed By: #### C MP, LIPID #### [facility] [address] [address] [address] Vasyl Bianchi HDL NORMAL > or = 60 mg/dl - LO W CARDIOVASCULAR RISK <40 mg/dl - HIGH CARDIOVASCULAR RISK Normal [facility] Comment on above: Performed By: #### C MP, LIPID #### [facility] [address] [address] [address] Vasyl Bianchi LDL CALC NORMAL SEE BELOW Normal [facility] Comment on above: Result Comment: <100 mg/dl OPTIMAL 100 - 129 mg/dl NEAR OR ABOVE OPTIMAL 130 - 159 mg/dl BORDERLINE HIGH 160 - 189 mg/dl HIGH >190 mg/dl VERY HIGH Performed By: #### C MP, LIPID #### [facility] Laboratory [address] [place] [address] Dr. Vasyl Bianchi Triglyceride [Mass/Vol] 159 mg/dL Critically high <=150 [facility] Comment on above: Performed By: #### C MP, LIPID #### [facility] Laboratory [address] [place] [address] Dr. Vasyl Bianchi VLDL CALC 31.8 mg/dL Normal [facility] Comment on above: Performed By: #### C MP, LIPID #### [facility] Laboratory [address] [place] [address] Dr. Vasyl Bianchi PROF 14(COMP METB)on 022 Albumin [Mass/Vol] 3.6 g/dL Normal 3.5-5.0 [facility] Comment on above: Performed By: #### C MP, LIPID #### [facility] Laboratory [address] [place] [address] Dr. Vasyl Bianchi Albumin/Globulin [Mass ratio] 1.0 {ratio} Normal [facility] Comment on above: Performed By: #### C MP, LIPID #### [facility] Laboratory [address] [place] [address] Dr. Vasyl Bianchi ALP [Catalytic activity/Vol] 74 U/L Normal 38-126 [facility] Comment on above: Performed By: #### C MP, LIPID #### [facility] Laboratory [address] [place] [address] Dr. Vasyl Bianchi ALT [Catalytic activity/Vol] 41 U/L Normal 21-72 [facility] Comment on above: Performed By: #### C MP, LIPID #### [facility] Laboratory [address] [place] [address] Dr. Vasyl Bianchi Anion gap [Moles/Vol] 13.2 mmol/L Normal [facility] Comment on above: Performed By: #### C MP, LIPID #### [facility] Laboratory [address] [place] [address] Dr. Vasyl Bianchi AST [Catalytic activity/Vol] 19 U/L Normal 17-59 [facility] Comment on above: Performed By: #### C MP, LIPID #### [facility] Laboratory [address] [place] [address] Dr. Vasyl Bianchi Bilirubin [Mass/Vol] 1.1 mg/dL Normal 0.2-1.3 [facility] Comment on above: Performed By: #### C MP, LIPID #### [facility] Laboratory [address] [place] [address] Dr. Vasyl Bianchi Calcium [Mass/Vol] 9.4 mg/dL Normal 8.4-10.2 [facility] Comment on above: Performed By: #### C MP, LIPID #### [facility] Laboratory [address] [place] [address] Dr. Vasyl Bianchi Chloride [Moles/Vol] 102 mmol/L Normal 98-107 [facility] Comment on above: Performed By: #### C MP, LIPID #### [facility] Laboratory [address] [place] [address] Dr. Vasyl Bianchi CO2 [Moles/Vol] 28.0 mmol/L Normal 22.0-30.0 [facility] Comment on above: Performed By: #### C MP, LIPID #### [facility] Laboratory [address] [place] [address] Dr. Vasyl Bianchi Creatinine [Mass/Vol] 1.11 mg/dL Normal 0.66-1.25 [facility] Comment on above: Performed By: #### C MP, LIPID #### [facility] Laboratory [address] [place] [address] Dr. Vasyl Bianchi EGFR-AF CYMRAES >60 Normal >=60 [facility] Comment on above: Performed By: #### C MP, LIPID #### [facility] Laboratory [address] [place] [address] Dr. Vasyl Bianchi EGFR-NON AF CYMRAES >60 Normal >=60 [facility] Comment on above: Performed By: #### C MP, LIPID #### [facility] Laboratory [address] [place] [address] Dr. Vasyl Bianchi Globulin (S) [Mass/Vol] 3.7 g/dL Normal [facility] Comment on above: Performed By: #### C MP, LIPID #### [facility] Laboratory [address] [place] [address] Dr. Vasyl Bianchi Glucose [Mass/Vol] 151 mg/dL Critically high 74-106 [facility] Comment on above: Performed By: #### C MP, LIPID #### [facility] Laboratory [address] [place] [address] Dr. Vasyl Bianchi Potassium [Moles/Vol] 4.2 mmol/L Normal 3.4-5.0 [facility] Comment on above: Performed By: #### C MP, LIPID #### [facility] Laboratory [address] [place] [address] Dr. Vasyl Bianchi Protein [Mass/Vol] 7.3 g/dL Normal 6.1-8.2 [facility] Comment on above: Performed By: #### C MP, LIPID #### [facility] [address] [address] [address] Vasyl Bianchi Sodium [Moles/Vol] 139 mmol/L Normal 137-145 [facility] Comment on above: Performed By: #### C MP, LIPID #### [facility] Laboratory [address] [place] [address] Dr. Vasyl Bianchi Urea nitrogen [Mass/Vol] 17.0 mg/dL Normal 9.0-20.0 [facility] Comment on above: Performed By: #### C MP, LIPID #### [facility] Laboratory [address] [place] [address] Dr. Vasyl Bianchi Urea nitrogen/Creatinine [Mass ratio] 15.3 mg/mg Normal [facility] Comment on above: Performed By: #### C MP, LIPID #### [facility] Laboratory [address] [place] [address] Dr. Vasyl Bianchi US ABD AORTA DIAGNOSTICon [...] by: NIKO ELIAS Date: 2021-05-10 09:40 Normal [facility] WRIST RIGHT 3 VWSon 12-15-19 21 WRIST RIGHT 3 S [facility] Department of Radiology [address] [place] [id number] ======== Patient Name: MINO VANESSA : 1960 Sex: M Age: Race: White Pt. Location: Patient Status: D Ordered Date: 12/14/2020 4:20:00 PM Completed Date: 12/14/2020 04:29 PM Requesting Provider: SELWYN MADRIGAL Attending Provider: SELWYN MADRIGAL Report Copy To: DEISY BRICENO JR Signs & Symptoms: M25.531 Pain in right wrist I10 History: Bobbi Comments: evaluate Exam: WRIST RIGHT 3 S ======== WRIST RIGHT 3 S HISTORY: Wrist pain. COMPARISON: None. IMPRESSION: 1. Postoperative changes from trapezium resection, small osseous densities at the expected location of the trapezium likely from remote surgery. 2. 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 Osteopenia. No acute fracture. No dislocation. Electronically signed: Antonio Horta. Transcribed by: [email or web address], User Resident: Electronically Signed by: ANTONIO HORTA @ 12/15/2020 02:23 PM Normal The [facility] Comment on above: Order Comment: evalu ate Vital Signs Date Time Vital Sign Value Performing Clinician Jacinda marques 10-07-2023 14:040 Body height 198.12 cm [facility] 10-07-2023 14:21-0400 Body mass index (BMI) [Ratio] 27.3 kg/m2 [facility] 10-07-2023 14:040 Body temperature 98.9 [degF] [facility] 10-07-2023 14:040 Body weight 107.55 kg [facility] 10-07-2023 14:0400 Diastolic blood pressure 78 mm[Hg] [facility] 10-07-2023 14:040 Heart rate 98 /min [facility] 10-07-2023 14:040 Respiratory rate 18 /min [facility] 10-07-2023 14:0400 SaO2% (BldA) [Mass fraction] 97 % [facility] 10-07-2023 14:040 Systolic blood pressure 148 mm[Hg] [facility] Encounters Encounter Date Encounter Type Care Provider Facility Start: 10-07-2023 End: 10-07-2023 ambulatory COMMUNITY SERVICE ORGANIZATION DIRECTOR-C Kimmie Roberto Work Phone: [facility] Work Phone: Start: 10-07-2023 End: 10-07-2023 Departed Referred COMMUNITY SERVICE ORGANIZATION DIRECTOR-C Kimmie Roberto Work Phone: [facility] [place] Work Phone: Start: 10-07-2023 End: 10-07-2023 ambulatory [facility] Work Phone: Start: 10-07-2023 End: 10-07-2023 Patient encounter procedure [facility] Work Phone: Start: 05-02-2022 [...] medical examination without abnormal findings KIMMIE ROBERTO [facility] Start: 05-10-2021 End: 05-11-2021 ambulatory KIMMIE ROBERTO Facility:[facility] Start: 05-10-2021 End: 05-11-2021 Encounter for general adult medical examination without abnormal findings KIMMIE ROBERTO Facility:[facility] Procedures Date Procedure Procedure Detail Performing Clinician Start: 05-10-2021 PSA screening KIMMIE PEREIRA Comment on above: Performed By: #### P [facility] ####[facility] [address] [place], [place] [address]ClBooker Bianchi Plan of Treatment Date Care Activity Detail Author Start: 10-08-2023 [facility] Start: 10-07-2023 Microscopic observat ion [Identifier] in Unspecified specimen by Gram stain [facility] Bacteria identified in Unspecified specimen by Aerobe culture [facility] Bacteria identified in Unspecified specimen by Anaerobe culture [facility] Payers Date Payer Category Payer Self-pay 1961 Self-pay [id number] 1961 Unknown [id number] 1960 Unknown [id number] 2.16.84 [id number] 1960 Unknown [id number] 2.16.84 [id number] 1960 Unknown [id number] 2.16.84 [id number] 1960 Unknown [id number] 2.16.84 [id number] 1960 Unknown [id number] 2.16.84 [id number] 1960 Unknown [id number] 2.16.84 [id number] 1960 Unknown [id number] 2.16.84 [id number] 1960 Unknown [id number] 2.16.84 [id number] Unknown [id number] 2.16.8 [id number] Social History Date Type Detail Facility Start: 10-07-2023 Tobacco smoking stat us MTIS Ex-smoker (finding) [facility] Start: 1960 Sex Assigned At Male F [facility] Evaluation note Note Date & Type Note Facility Evaluation note Diagnosis Onset Date Abscess of right buttock acu te [facility] Work Phone: Summary Purpose Family History No [...] section and content) DATE CREATED AUTHOR 07/24/2021 [facility] DATE CREATED AUTHOR AUTHOR'S ORGANIZ ATION 05/04/2022 [facility] DATE CREATED AUTHOR AUTHOR'S ORGANIZ ATION 10/11/2023 [facility] Care Teams (unrecognized sec tion and content) Team Status: Active Member Role Status Dates NAHOMY Lewis Primary Care Provider Active Team Status: Inactive Member Role Status Dates Leyda Jack APRN Attending Provider Active Start: October 07, 2023 End: October 07, 2023 NAHOMY eLwis Primary Care Provider Active Start: October 07, [...] BE BASED ON THE PRIMARY CLINICAL RECORDS. [employer] provides no warranty or guarantee of the accuracy or completeness of information in this document.
== END 2023-12-03 08:04 | disposition home or self-care (01) ==
LOC: EC 08:03
PROVIDERS: PCP Nurse Practitioner Family; Visit Provider Orthopaedic Surgery
DX: S92.415D Nondisplaced fracture of proximal phalanx of left great toe, subsequent encounter for fracture with routine healing (principal)
CPT/HCPCS: 73630

== ENCOUNTER 2023-12-31 08:32 | Outpatient (OUT) | payer OTHER, SELFPAY ==
--- NOTE | 2023-12-31 | XR_ITS ---
The [address] [address] Patient Name: NELI TINSLEY MRN: [id number] date: 1960 Sex: M Assigned Patient Location: Current Patient Location: Accession/Order Number: [id number] Exam Date: 12/31/2023 09:40 Report Date: 12/31/2023 16:22 At the request of: NELI NEW Procedure: XR foot LT min 3V PROCEDURE: XR foot LT min 3V COMPARISON: 12/03/2023 HISTORY: LEFT FOOT PAIN FINDINGS: BONES:Focal sclerosis involving the mid to distal diaphysis of the first proximal phalanx consistent with a stable healing fracture. No new fracture or dislocation. Mild plantar enthesopathic spurring of the calcaneus SOFT TISSUES:Negative. No visible soft tissue swelling. EFFUSION:None visible. OTHER: Negative. XR/XR foot LT min 3V IMPRESSION: Stable healing extra-articular fracture of the first proximal phalanx Electronically authenticated by: NIKO ELIAS Date: 12/31/2023 16:22
--- OUTSIDE RECORDS SUMMARY | 2023-12-31 08:41 | XMS_ITS | CCD ---
Author Organization [facility] Care Team Providers Care Straight Edger Name Role Phone KIMMIE ROBERTO Primary Care Unavailable SUZIE, DR VILLARREAL Admitting Unavailable ABBAS, DR VILLARREAL [...] Consulting Unavailable FELISA, KIMMIE Primary Care Unavailable [place], DR NIKO Vasquez Consulting Unavailable Felisa, CONTACT ACID PLANT OPERATOR-C Kimmie Hernandez Primary Care Provider [phone] SARAH Jack Attending Provider [phone] Kimmie Roberto Primary Care Unavailable Leyda Jack Attending Unavailable Leyda Jack Admitting Unavailable RADHAMES DENNIS Attending Unavailable Medications Current Medications Medication Drug Class(es) [...] RESISTANT TO ALL B-LACTAM DRUGS. PERFORMED BY: [place] [address] PATHOLOGIST PROFESSOR OF ECONOMICS SHAUN TORRES M.D. Normal [facility] Comment on above: Performed By: #### A ERC #### [address] US ABD AORTA DIAGNOSTICon US ABD [...] NIKO ELIAS Date: 2022-05-02 11:16 Normal [facility] Covid-19 PCR (CVDTB)on 01-21 SARS-CoV-2 (COVID-19) RNA SUSANA+probe Ql (Unsp spec) Not detected Normal NOT DETECTED [facility] Comment on above: Result Comment: This test is not yet approved or cleared by the [place] FDA. When there are no FDA-approved or cleared tests available, and other criteria are met, FDA can make tests available under an emergency access mechanism called an Emergency Use Authorization (EUA). The EUA for this test is supported by the Maintenance Custodian of Health and Human Service's (HHS's) declaration [...] SARS-CoV-2. Performed By: #### C VDTBH #### [facility] [address] [place] [address] Vasyl Bianchi Covid-19 PCR ([facility])on SARS-CoV-2 (COVID-19) RNA SUSANA+probe Ql (Unsp spec) Not detected Normal NOT DETECTED [facility] Comment on above: Result Comment: When diagnostic [...] for this test is supported by the [place] of Health and Human Service's declaration that [...] used). Performed By: #### C VDTBH #### [facility] [address] [place] [address] Vasyl Bianchi XR CHEST 2 Von [...] MARY GARCIA Date: 2022-01-20 17:44 Normal [facility]on 08-3 0-2022 SARS-CoV-2 (COVID-19) RNA SUSANA+probe Ql (Unsp spec) Not detected Normal NOT DETECTED [facility] Comment on above: Result Comment: This test is not yet approved or cleared by the [place] FDA. When there are no FDA-approved or cleared tests available, and other criteria are met, FDA can make tests available under an emergency access mechanism called an Emergency Use Authorization (EUA). The EUA for this test is supported by the Maintenance Custodian of Health and Human Service's (HHS's) declaration [...] SARS-CoV-2. Performed By: #### C VDTBH #### [facility] [address] [place] [address] Dr. Vasyl Bianchi INSULINon 05-11-2021 Insulin 17.0 uIU/mL Normal 2.6-24.9 [facility] Comment on above: Performed By: #### I NSULIN #### [facility] [address] [place] [address] Dr. Vasyl Bianchi CBC AUTO DIFFon 05-10-2021 BASO # 0.0 103/ul Normal 0.0-0.1 [facility] Comment on above: Performed By: #### C BC ####[facility] [address] [address]DrBooker Bianchi Basophils/100 WBC (Bld) 0.3 % Normal 0.2-2.0 [facility] Comment on above: Performed By: #### C BC ####[facility] [address] [address]DrBooker Bianchi EO # 0.2 103/ul Normal 0.0-0.7 [facility] Comment on above: Performed By: #### C BC ####[facility] [address] [place] [id number]. Vasyl Bianchi Eosinophils/100 WBC (Bld) 3.0 % Normal 0.9-7.0 [facility] Comment on above: Performed By: #### C BC ####[facility] [address] [place] [address]Dr. Vasyl Bianchi Erythrocyte distribution width (RBC) [Ratio] 13.6 % Normal 11.0-15.0 [facility] Comment on above: Performed By: #### C BC ####[facility] [address] [place], [place] [address]Dr. Vasyl Bianchi Hematocrit (Bld) [Volume fraction] 39.5 % Critically low 42.0-54.0 [facility] Comment on above: Performed By: #### C BC ####[facility] [address] [place], [place] [address]Dr. Vasyl Bianchi Hemoglobin (Bld) [Mass/Vol] 13.2 g/dL Critically low 14.0-18.0 [facility] Comment on above: Performed By: #### C BC ####[facility] [address] [place], [place] [address]Dr. Vasyl Bianchi IG # 0.02 10e3/ul Normal 0.00-0.03 [facility] Comment on above: Performed By: #### C BC ####[facility] [address] [place], [place] [address]Dr. Vasyl Bianchi IG % 0.3 % Normal 0.0-0.5 [facility] Comment on above: Performed By: #### C BC ####[facility] [address] [place], [place] [address]Dr. Vasyl Bianchi LYMPH # 1.5 103/ul Normal 1.2-3.8 [facility] Comment on above: Performed By: #### C BC ####[facility] [address] [place], [place] [address]Dr. Vasyl Bianchi Lymphocytes/100 WBC (Bld) 20.6 % Normal 20.5-60.0 [facility] Comment on above: Performed By: #### C BC ####[facility] [address] [place] [id number]. Vasyl Bianchi MANUAL DIFF REQ NO Normal [facility] Comment on above: Performed By: #### C BC ####[facility] [address] [place] [phone]. Vasyl Bianchi MCH (RBC) [Entitic mass] 30.6 pg Normal 25.9-34.0 [facility] Comment on above: Performed By: #### C BC ####[facility] [address] [place] [phone]. Vasyl Bianchi MCHC (RBC) [Mass/Vol] 33.4 g/dL Normal 29.9-35.2 [facility] Comment on above: Performed By: #### C BC ####[facility] [address] [place], [place] [address]Dr. Vasyl Bianchi MCV (RBC) [Entitic vol] 91.6 fL Normal 80.0-94.0 [facility] Comment on above: Performed By: #### C BC ####[facility] [address] [place], [place] [address]Dr. Vasyl Bianchi MONO # 0.5 103/ul Normal 0.3-0.8 [facility] Comment on above: Performed By: #### C BC ####[facility] [address] [place], [place] [address]Dr. Vasyl Bianchi Monocytes/100 WBC (Bld) 6.8 % Normal 1.7-12.0 [facility] Comment on above: Performed By: #### C BC ####[facility] [address] [place], [place] [address]Dr. Vasyl Bianchi NEUT # 5.1 103/ul Normal 1.4-6.5 [facility] Comment on above: Performed By: #### C BC ####[facility] [address] [place], [place] [address]Dr. Vasyl Bianchi Neutrophils/100 WBC (Bld) 69.0 % Normal 43.0-75.0 [facility] Comment on above: Performed By: #### C BC ####[facility] [address] [place], [place] [address]Mt. Vasyl Bianchi Platelet mean volume (Bld) [Entitic vol] 10.4 fL Normal 9.5-13.5 [facility] Comment on above: Performed By: #### C BC ####[facility] [address] [place] [id number]. Vasyl Bianchi PLT 167 103/ul Normal 150-450 [facility] Comment on above: Performed By: #### C BC ####[facility] [address] [place] [phone]. Vasyl Bianchi RBC 4.31 106/ul Critically low 4.70-6.10 [facility] Comment on above: Performed By: #### C BC ####[facility] [address] [place] [phone]. Vasyl Bianchi WBC 7.3 103/ul Normal 4.0-11.0 [facility] Comment on above: Performed By: #### C BC ####[facility] [address] [place] [phone] Bianchi GLYCOHEMOGLOBIN A1Con 2021 ADA RECOMMENDATION ADA THERAPEUTIC TARG ET 6.0 - 7.0 ACTION SUGGESTED > 7.0 Normal [facility] Comment on above: Performed By: #### A 1C #### [facility] [address] [address] [address] Vasyl Bianchi Glucose [Mass/Vol] 235 mg/dL Normal [facility] Comment on above: Performed By: #### A 1C #### [facility] [address] [address] [address] Vasyl Bianchi HbA1c (Bld) [Mass fraction] 9.8 % Critically high <=6.0 [facility] Comment on above: Performed By: #### A 1C #### [facility] [address] [address] [address] Vasyl Bianchi LIPID PROFILEon 05-10-2021 CHOL-HDL RATIO NORM SEE BELOW Normal [facility] [place] [facility] Comment on above: Result Comment: 3.3 - 4.4 LOW RISK 4.4 - 7.1 AVERAGE RISK 7.1 - 11.0 MODERATE RISK >11.0 HIGH RISK Performed By: #### C MP, LIPID #### [facility] [address] [address] [address] Vasyl Bianchi Cholesterol [Mass/Vol] 111 mg/dL Normal <=200 [facility] Comment on above: Performed By: #### C MP, LIPID #### [facility] [address] [address] [address] Vasyl Bianchi Cholesterol in HDL [Mass/Vol] 33 mg/dL Normal [facility] Comment on above: Performed By: #### C MP, LIPID #### [facility] [address] [address] [address] Vasyl Bianchi Cholesterol in LDL [Mass/Vol] 46.2 mg/dL Normal [facility] Comment on above: Performed By: #### C MP, LIPID #### [facility] [address] [address] [address] Vasyl Bianchi Cholesterol.total/Ch olesterol in HDL [Mass ratio] 3.4 {ratio} Normal [facility] Comment on above: Performed By: #### C MP, LIPID #### [facility] [address] [place] [address] Dr. Vasyl Bianchi HDL NORMAL > or = 60 mg/dl - LO W CARDIOVASCULAR RISK <40 mg/dl - HIGH CARDIOVASCULAR RISK Normal [facility] Comment on above: Performed By: #### C MP, LIPID #### [facility] [address] [place] [address] Dr. Vasyl Bianchi LDL CALC NORMAL SEE BELOW Normal [facility] Comment on above: Result Comment: <100 mg/dl OPTIMAL 100 - 129 mg/dl NEAR OR ABOVE OPTIMAL 130 - 159 mg/dl BORDERLINE HIGH 160 - 189 mg/dl HIGH >190 mg/dl VERY HIGH Performed By: #### C MP, LIPID #### [facility] [address] [place] [address] Dr. Vasyl Bianchi Triglyceride [Mass/Vol] 159 mg/dL Critically high <=150 [facility] Comment on above: Performed By: #### C MP, LIPID #### [facility] [address] [address] [address] Vasyl Bianchi VLDL CALC 31.8 mg/dL Normal [facility] Comment on above: Performed By: #### C MP, LIPID #### [facility] [address] [address] [address] Vasyl Bianchi PROF 14(COMP METB)on 022 Albumin [Mass/Vol] 3.6 g/dL Normal 3.5-5.0 [facility] Comment on above: Performed By: #### C MP, LIPID #### [facility] [address] [address] [address] Vasyl Bianchi Albumin/Globulin [Mass ratio] 1.0 {ratio} Normal [facility] Comment on above: Performed By: #### C MP, LIPID #### [facility] [address] [place] [address] Dr. Vasyl Bianchi ALP [Catalytic activity/Vol] 74 U/L Normal 38-126 [facility] Comment on above: Performed By: #### C MP, LIPID #### [facility] [address] [address] [address] Vasyl Bianchi ALT [Catalytic activity/Vol] 41 U/L Normal 21-72 [facility] Comment on above: Performed By: #### C MP, LIPID #### [facility] [address] [address] [address] Vasyl Bianchi Anion gap [Moles/Vol] 13.2 mmol/L Normal [facility] Comment on above: Performed By: #### C MP, LIPID #### [facility] [address] [address] [address] Vasyl Bianchi AST [Catalytic activity/Vol] 19 U/L Normal 17-59 [facility] Comment on above: Performed By: #### C MP, LIPID #### [facility] [address] [address] [address] Vasyl Bianchi Bilirubin [Mass/Vol] 1.1 mg/dL Normal 0.2-1.3 [facility] Comment on above: Performed By: #### C MP, LIPID #### [facility] [address] [address] [address] Vasyl Bianchi Calcium [Mass/Vol] 9.4 mg/dL Normal 8.4-10.2 [facility] Comment on above: Performed By: #### C MP, LIPID #### [facility] [address] [address] [address] Vasyl Bianchi Chloride [Moles/Vol] 102 mmol/L Normal 98-107 [facility] Comment on above: Performed By: #### C MP, LIPID #### [facility] [address] [address] [address] Vasyl Bianchi CO2 [Moles/Vol] 28.0 mmol/L Normal 22.0-30.0 [facility] Comment on above: Performed By: #### C MP, LIPID #### [facility] [address] [address] [address] Vasyl Bianchi Creatinine [Mass/Vol] 1.11 mg/dL Normal 0.66-1.25 [facility] Comment on above: Performed By: #### C MP, LIPID #### [facility] [address] [address] [address] Vasyl Bianchi EGFR-AF OMANI >60 Normal >=60 [facility] Comment on above: Performed By: #### C MP, LIPID #### [facility] [address] [address] [address] Vasyl Bianchi EGFR-NON AF OMANI >60 Normal >=60 [facility] Comment on above: Performed By: #### C MP, LIPID #### [facility] [address] [address] [address] Vasyl Bianchi Globulin (S) [Mass/Vol] 3.7 g/dL Normal [facility] Comment on above: Performed By: #### C MP, LIPID #### [facility] [address] [address] [address] Vasyl Bianchi Glucose [Mass/Vol] 151 mg/dL Critically high 74-106 T [facility] Comment on above: Performed By: #### C MP, LIPID #### [facility] [address] [address] [address] Vasyl Bianchi Potassium [Moles/Vol] 4.2 mmol/L Normal 3.4-5.0 [facility] Comment on above: Performed By: #### C MP, LIPID #### [facility] [address] [place] [address] Dr. Vasyl Bianchi Protein [Mass/Vol] 7.3 g/dL Normal 6.1-8.2 [facility] Comment on above: Performed By: #### C MP, LIPID #### [facility] [address] [place] [address] Dr. Vasyl Bianchi Sodium [Moles/Vol] 139 mmol/L Normal 137-145 [facility] Comment on above: Performed By: #### C MP, LIPID #### [facility] [address] [place] [address] Dr. Vasyl Bianchi Urea nitrogen [Mass/Vol] 17.0 mg/dL Normal 9.0-20.0 [facility] Comment on above: Performed By: #### C MP, LIPID #### [facility] [address] [place] [address] Dr. Vasyl Bianchi Urea nitrogen/Creatinine [Mass ratio] 15.3 mg/mg Normal [facility] Comment on above: Performed By: #### C MP, LIPID #### [facility] [address] [place] [address] Dr. Vasyl Bianchi US ABD AORTA DIAGNOSTICon [...] by: NIKO ELIAS Date: 2021-05-10 09:40 Normal [facility] WRIST RIGHT 3 VWSon 12-15-19 21 WRIST RIGHT 3 VWS [facility] Department of Radiology [address] [place] [id number] ======== Patient Name: NELI TINSLEY : 1960 Sex: M Age: Race: White Pt. Location: Patient Status: D Ordered Date: 12/14/2020 4:20:00 PM Completed Date: 12/14/2020 04:29 PM Requesting Provider: SELWYN MADRIGAL Attending Provider: SELWYN MADRIGAL Report Copy To: DEISY BRICENO JR Signs & Symptoms: M25.531 Pain in right wrist I10 History: Bobbi Comments: evaluate Exam: WRIST RIGHT 3 VWS ======== WRIST RIGHT 3 S HISTORY: Wrist pain. COMPARISON: None. IMPRESSION: 1. Postoperative changes from trapezium resection, small osseous densities at the expected location of the trapezium likely from remote surgery. 2. 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 Osteopenia. No acute fracture. No dislocation. Electronically signed: Antonio Horta. Transcribed by: [email or web address], User Resident: Electronically Signed by: ANTONIO HORTA @ 12/15/2020 02:23 PM Normal [facility] Comment on above: Order Comment: evalu ate Vital Signs Date Time Vital Sign Value Performing Clinician Faci shelli 10-07-2023 14:21-0400 Body height 198.12 cm [facility] 10-07-2023 14:0400 Body mass index (BMI) [Ratio] 27.3 kg/m2 [facility] 10-07-2023 14:21-0400 Body temperature 98.9 [degF] [facility] 10-07-2023 14:0400 Body weight 107.55 kg [facility] 10-07-2023 14:0400 Diastolic blood pressure 78 mm[Hg] [facility] 10-07-2023 14:0400 Heart rate 98 /min [facility] 10-07-2023 14:0400 Respiratory rate 18 /min [facility] 10-07-2023 14:0400 SaO2% (BldA) [Mass fraction] 97 % [facility] 10-07-2023 14:0400 Systolic blood pressure 148 mm[Hg] [facility] Encounters Encounter Date Encounter Type Care Provider Facility Start: 12-14-2023 End: 12-14-2023 ambulatory RADHAMES DENNIS Not Available Start: 10-07-2023 End: 10-07-2023 ambulatory CONTACT ACID PLANT OPERATOR-C Kimmie Roberto Work Phone: [facility] Work Phone: Start: 10-07-2023 End: 10-07-2023 Departed Referred CONTACT ACID PLANT OPERATOR-C Kimmie Roberto Work Phone: [facility] [place] Work Phone: Start: 10-07-2023 End: 10-07-2023 ambulatory [facility] Work Phone: Start: 10-07-2023 End: 10-07-2023 Patient encounter procedure [facility] Work Phone: Start: 05-02-2022 [...] adult medical examination without abnormal findings KIMMIE SAWANTMER [facility] Start: 05-10-2021 End: 05-11-2021 ambulatory KIMMIE ROBERTO Facility:[facility] Start: 05-10-2021 End: 05-11-2021 Encounter for general adult medical examination without abnormal findings KIMMIE ROBERTO Facility:[facility] Procedures Date Procedure Procedure Detail Performing Clinician Start: 05-10-2021 PSA screening KIMMIE PEREIRA Comment on above: Performed By: #### P [place] ####[facility] [address] [place], [place] [address]ZbBooker Bianchi Plan of Treatment Date Care Activity Detail Author Start: 10-08-2023 [facility] Start: 10-07-2023 Microscopic observat ion [Identifier] in Unspecified specimen by Gram stain [facility] Bacteria identified in Unspecified specimen by Aerobe culture [facility] Bacteria identified in Unspecified specimen by Anaerobe culture [facility] Payers Date Payer Category Payer Self-pay 1961 Self-pay [id number] 1961 Unknown [id number] 1960 Unknown [id number] 2.16.84 [id number] 1960 Unknown [id number] 2.16.84 [id number] 1960 Unknown [id number] 2.16.84 [id number] 1960 Unknown [id number] 2.16.84 [id number] 1960 Unknown [id number] 2.16.84 [id number] 1960 Unknown [id number] 2.16.84 [id number] 1960 Unknown [id number] 2.16.84 [id number] 1960 Unknown [id number] 2.16.84 [id number] 1960 Unknown [id number] 2.16.84 [id number] Unknown [id number] 2.16.8 [id number] Social History Date Type Detail Facility Start: 10-07-2023 Tobacco smoking stat [facility] Ex-smoker (finding) [facility] Start: 1960 Sex Assigned At Male F [facility] Evaluation note Note Date & Type Note Facility Evaluation note Diagnosis Onset Date Abscess of right buttock acu te [facility] Work Phone: Summary Purpose Family History [...] Records FoundNo Status Records FoundNo Status Records FoundNo Status Records Found INFORMATION SOURCE (unrecogn ized section and content) DATE CREATED AUTHOR 07/24/2021 [facility] DATE CREATED AUTHOR AUTHOR'S ORGANIZ ATION 05/04/2022 [facility] DATE CREATED AUTHOR AUTHOR'S ORGANIZ ATION 10/11/2023 [facility] DATE CREATED AUTHOR AUTHOR'S ORGANIZ ATION 12/16/2023 [facility] [employer] Care Teams (unrecognized sec tion and content) [...] BE BASED ON THE PRIMARY CLINICAL RECORDS. [employer] provides no warranty or guarantee of the accuracy or completeness of information in this document.
== END 2023-12-31 08:33 | disposition home or self-care (01) ==
LOC: EC 08:32
PROVIDERS: PCP Nurse Practitioner Family; Visit Provider Orthopaedic Surgery
DX: S92.415D Nondisplaced fracture of proximal phalanx of left great toe, subsequent encounter for fracture with routine healing (principal)
CPT/HCPCS: 73630

== ENCOUNTER 2024-05-05 08:41 | Outpatient (OUT) | payer OTHER, SELFPAY ==
--- NOTE | 2024-05-05 08:48 | US_ITS ---
[address] [address] Patient Name: NELI TINSLEY MRN: [id number] date: 1960 Sex: M Assigned Patient Location: US Current Patient Location: Accession/Order Number: [id number] Exam Date: 05/05/2024 08:55 Report Date: 05/05/2024 09:56 At the request of: ALTA ROBERTO Procedure: US abdominal aortic aneurysm EXAMINATION: US abdominal aortic aneurysm HISTORY: Abdominal Aortic Aneurysm I71.40 COMPARISON: No relevant comparison available. TECHNIQUE: Ultrasound examination of the retroperitoneal area was performed, with a focused evaluation of the abdominal aorta. FINDINGS: Proximal aorta: 2.6 x 2.8 cm Mid aorta: 2.1 x 2.3 cm Distal aorta: 4.5 x 4.5 cm Right common iliac artery: 1.9 x 1.5 cm Left common iliac artery: 2.0 x 1.4 cm Normal color and Doppler flow US/US abdominal aortic aneurysm IMPRESSION: Fusiform aneurysm of the distal abdominal aorta measuring 4.5 cm Electronically authenticated by: NIKO ELIAS Date: 05/05/2024 09:56
--- OUTSIDE RECORDS SUMMARY | 2024-05-05 09:03 | XMS_ITS | CCD ---
Author Organization [facility] CliniSyct Care Team Providers Care Sheet Rock Installer Name Role Phone KIMMIE ROBERTO Primary Care Unavailable ABBDANIELLE, DR VILLARREAL Admitting Unavailable ABBAS, DR VILLARREAL [...] Consulting Unavailable FELISA, KIMMIE Primary Care Unavailable MILLBROOK, DR NIKO Vasquez Consulting Unavailable Felisa, MATHEMATICAL SCIENTIST-C Kimmie Hernandez Primary Care Provider [phone] SARAH Jack Attending Provider Kimmie Roberto Primary Care Unavailable Leyda Jack Attending Unavailable Leyda Jack Admitting Unavailable STACY DENNIS Attending Unavailable STACY DENNIS Attending Unavailable Unavailable Primary Care Provider Unavailabl e Unallocated , Noms Provider Primary Care Provi ro Medications Current Medications Medication Drug Class(es) Dates Sig (Normalized) Sig (Original) aspirin 81 mg delayed release oral tablet (11 sources) Platelet Aggregation Inhibitor, Nonsteroidal Anti-inflammatory Drug Start: 10-07-2023 take 1 tablet by mouth once daily aspirin 81 MG EC tablet Take 1 tablet by mouth Daily 10/07/2023 Active atorvastatin 40 mg oral tablet (11 sources) HMG-CoA Reductase Inhibitor Start: 10-07-2023 take 40 mg by mouth once daily at bedtime Atorvastatin Active 40 MG PO Daily at bedtime October 07, 2023 12:00am Continuous Glucose Meter Reading Clerk (FreeStyle [place]ita 3 [place]) device (9 sources) Start: 02-04-2024 Continuous Glucose Meter Reading Clerk (FreeStyle [place] 3 [place]) device Indications: 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) 1 Device See administration instructions 1 each 02/04/2024 Active Start: 12-17-2023 Continuous Glu cose Meter Reading Clerk (FreeStyle [place] 3 [place]) device Indications: 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) 1 Device See administration instructions 1 each 12/17/2023 Active Continuous Glucose Sensor (FreeStyle [place] 3 Plus Sensor) misc (2 sources) Start: 02-04-2024 Continuous Glucose Sensor (FreeStyle [place] 3 Plus Sensor) misc Indications: 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) 1 each See administration instructions 6 each 3 02/04/2024 Active Continuous Glucose Sensor (FreeStyle [place]ita 3 Sensor) misc (7 sources) Start: 12-17-2023 Continuous Glucose Sensor (FreeStyle Catr[place]ita 3 Sensor) misc Indications: 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) Inject 1 Device under the skin every 14 (fourteen) days 6 each 3 12/17/2023 Active 0.5 ml dulaglutide 1.5 mg/ml auto-injector (11 sources) GLP-1 Receptor Agonist Start: 12-17-2023 End: 12-16-2024 inject 0.75 mg by subcutaneous injection every week dulaglutide (Trulicity) 0.75 MG/0.5ML solution pen-injector Indications: 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 Take before meals. 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) Inject 50 Units under the skin Daily 15 mL 3 04/29/2024 Active 3 ml insulin lispro 100 unt/ml pen injector (15 sources) Insulin Analog Start: 05-01-2024 HumaLOG KWIKPE N 100 UNIT/ML injection 20 units small meals and 30 units large meals (max daily 100) 15 mL 3 05/01/2024 Active Start: 01-25-2024 End: 05-01-2024 HumaLOG KWIKPEN 100 UNIT/ML injection 10 units small meals and 20 units large meals (max daily 36 units) 15 mL 3 01/25/2024 05/01/2024 Discontinued (Dose adjustment) Start: 12-17-2023 End: 01-25-2024 HumaLOG KWIKPEN 100 UNIT/ML injection 12 units small meals and 24 units large meals (max daily 36 units) 15 mL 3 12/17/2023 01/25/2024 Discontinued (Dose adjustment) End: 12-17-2023 HumaLOG KWIKPEN 100 UNIT/ML injection 18 units qAC 12/17/2023 Discontinued (Dose adjustment) lisinopril 5 mg oral tablet (11 sources) Angiotensin Converting Enzyme Inhibitor Start: 10-07-2023 take 1 tablet by mouth once daily lisinopril 5 MG tablet Take 5 mg by mouth Daily 10/07/2023 Active metFORMIN hydrochloride 500 mg oral tablet (11 sources) Biguanide Start: 10-07-2023 take 1 tablet by mouth in the morning metFORMIN (Glucophage) 500 MG tablet Take 500 mg by mouth in the morning and 500 mg in the evening. Take with meals. 10/07/2023 Active Completed/Discontinued Medications Medication Drug Class(es) Dates Sig (Normalized) Sig (Original) acetaminophen 325 mg / HYDROcodone bitartrate 5 mg oral tablet (2 sources) Opioid Agonist End: 12-14-2023 HYDROcodone-acetam inophen ([place]) 5-325 MG tablet 12/14/2023 Discontinued amoxicillin 500 mg / clavulanate 125 mg oral tablet (4 sources) Penicillin-class Antibacterial Start: 10-07-2023 End: 12-14-2023 take 1 tablet by mouth in the morning, then take 1 tablet by mouth in the evening, then take 1 tablet by mouth at bedtime amoxicillin-clavul anate (Augmentin) 500-125 MG tablet Take 1 tablet by mouth in the morning and 1 tablet in the evening and 1 tablet before bedtime. 10/07/2023 12/14/2023 Discontinued Start: 10-07-2023 take 1 tablet by angela th three times daily Amoxicillin-Pot Clavulanate Active 1 TAB PO Three times daily 19 02October 07, 2023 12:00am atropine sulfate 0.025 mg / diphenoxylate hydrochloride 2.5 mg oral tablet (2 sources) Anticholinergic, Cholinergic Muscarinic Antagonist, Antidiarrheal End: 12-14-2023 diphenoxylate-atropine (Lomotil) 2.5-0.025 MG tablet 12/14/2023 Discontinued cephalexin 500 mg oral capsule (2 sources) Cephalosporin Antibacterial End: 12-14-2023 cephalexin (Keflex) 500 MG capsule 12/14/2023 Discontinued colesevelam hydrochloride 625 mg oral tablet (2 sources) Bile Acid Sequestrant End: 12-14-2023 take 3 tablets by mouth in the morning colesevelam (Welchol) 625 MG tablet Take 3 tablets by mouth in the morning and 3 tablets in the evening. Take with meals. 12/14/2023 Discontinued cyclobenzaprine hydrochloride 10 mg oral tablet (2 sources) Muscle Relaxant End: 12-14-2023 take 1 tablet by mouth three times daily as needed for muscle spasms cyclobenzaprine (Flexeril) 10 MG tablet Take 10 mg by mouth 3 (three) times a day as needed for muscle spasms 12/14/2023 Discontinued diclofenac sodium 75 mg delayed release oral tablet (2 sources) Nonsteroidal Anti-inflammatory Drug End: 12-14-2023 diclofenac (Voltaren) 75 MG EC tablet Take 75 mg by mouth 12/14/2023 Discontinued empagliflozin 25 mg oral tablet (2 sources) Sodium-Glucose Cotransporter 2 Inhibitor Start: 11-14-2023 End: 12-14-2023 take 25 mg by mouth once daily Jardiance 25 MG Take 25 mg by mouth Daily 11/14/2023 12/14/2023 Discontinued fluorouracil 50 mg/ml topical cream (2 sources) Nucleoside Metabolic Inhibitor End: 12-14-2023 fluorouracil (Efudex) 5 % cream 12/14/2023 Discontinued gabapentin 100 mg oral capsule (2 sources) Anti-epileptic Agent End: 12-14-2023 take 1 capsule by mouth once daily gabapentin (Neurontin) 100 MG capsule Take 1 capsule by mouth 1 (one) time each day at the same time 12/14/2023 Discontinued 3 ml insulin aspart, human 100 unt/ml pen injector (2 sources) Insulin Analog End: 12-14-2023 insulin aspart (NovoLOG FLEXPEN) 100 UNIT/ML pen 12/14/2023 Discontinued 3 ml insulin detemir 100 unt/ml pen injector (13 sources) Insulin Analog Start: 01-25-2024 End: 04-29-2024 Levemir FlexTouch 100 UNIT/ML pen Inject 60 Units under the skin in the morning. 30 mL 3 01/25/2024 04/29/2024 Discontinued Start: 12-17-2023 End: 01-25-2024 Levemir FlexTouch 100 UNIT/M L pen Inject 55 Units under the skin in the morning. 30 mL 3 12/17/2023 01/25/2024 Discontinued (Dose adjustment) End: 12-17-2023 Levemir FlexTouch 100 UNIT/M L pen Inject 40 Units under the skin in the morning. 12/17/2023 Discontinued (Dose adjustment) meloxicam 15 mg oral tablet (2 sources) Nonsteroidal Anti-inflammatory Drug End: 12-14-2023 take 1 tablet by mouth once daily meloxicam (Mobic) 15 MG tablet Take 15 mg by mouth Daily 12/14/2023 Discontinued Problems Active Problems Problem Classification Problem Date Documented Date Episodic/Chronic Aortic; peripheral; and visceral artery aneurysms (14 sources) Abdominal aortic aneurysm, without rupture; Translations: [Abdominal aortic aneurysm] Onset: 11-05-2014 Chronic Coagulation and hemorrhagic disorders (9 sources) Thrombocytopenic disorder; Translations: [Thrombocytopenia, unspecified] Onset: 03-01-2015 12-14-2023 Chronic Diabetes mellitus with complications (20 sources) Peripheral neuropathy due to type 2 diabetes mellitus; Translations: [Type 2 diabetes mellitus with diabetic polyneuropathy] Onset: 05-09-2016 12-14-2023 Chronic Disorders of lipid metabolism (9 sources) Dyslipidemia; Translations: [Hyperlipidemia, unspecified] Onset: 09-10-2014 12-14-2023 Chronic Osteoarthritis (9 sources) Osteoarthrosis of the carpometacarpal joint of the thumb; Translations: [Osteoarthritis of first carpometacarpal joint, unspecified] Onset: 03-31-2020 12-14-2023 Chronic Other nervous system disorders (9 sources) Carpal tunnel syndrome; Translations: [Carpal tunnel syndrome, unspecified upper limb] Onset: 03-13-2016 12-14-2023 Chronic Skin and subcutaneous tissue infections (5 [...] Classification Problem Date Documented Da te Episodic/Chronic Malaise and fatigue (9 sources) Asthenia; Translations: [Weakness] Onset: 05-17-2015 12-14-2023 Episodic Other connective tissue disease (9 sources) Plantar fasciitis; Translations: [Plantar fascial fibromatosis] Onset: 02-07-2017 12-14-2023 Episodic Other connective tissue disease (9 sources) History of cervical spine fusion; Translations: [Arthrodesis status] Onset: 02-27-2014 12-14-2023 Episodic Other screening for suspected conditions (not mental [...] Test Name Value Interpretation Reference Range Facility HbA1c (Bld) [Mass fraction]O rdered By: Micheline Thibodeaux on 04-29-2024 Interpretation and review of laboratory results Abnormal [facility] - Hematology and Cell countsOrdered By: Micheline Thibodeaux on 04-29-2024 HbA1c (Bld) [Mass fraction] 9.3 % [facility] HbA1c (Bld) [Mass fraction]o n 01-25-2024 Interpretation and review of laboratory results Abnormal [facility] - Hematology and Cell countson 01-25-2024 HbA1c (Bld) [Mass fraction] 8.8 % [facility] Aerobic Cultureon 10-07-2023 Aerobic Culture (ABSCESS OF [...] RESISTANT TO ALL B-LACTAM DRUGS. PERFORMED BY: [place] [address] PATHOLOGIST REPORT ANALYST SHAUN TORRES M.D. Normal [facility] Comment on above: Performed By: #### A ERC #### [address] US ABD AORTA DIAGNOSTICon US ABD [...] NIKO ELIAS Date: 2022-05-02 11:16 Normal [facility] Covid-19 PCR (CVDTB)on 01-21 SARS-CoV-2 (COVID-19) RNA SUSANA+probe Ql (Unsp spec) Not detected Normal NOT DETECTED [facility] Comment on above: Result Comment: This test is not yet approved or cleared by the [place] FDA. When there are no FDA-approved or cleared tests available, and other criteria are met, FDA can make tests available under an emergency access mechanism called an Emergency Use Authorization (EUA). The EUA for this test is supported by the Nonfarm Animal Caretaker of Health and Human Service's (HHS's) declaration [...] consistent with SARS-CoV-2. Performed By: #### C VDTB #### [facility] [address] [place] [address] Dr. Vasyl Bianchi Covid-19 PCR ([facility])on SARS-CoV-2 (COVID-19) RNA SUSANA+probe Ql (Unsp spec) Not detected Normal NOT DETECTED [facility] Comment on above: Result Comment: When diagnostic [...] for this test is supported by the [place] of Health and Human Service's declaration that [...] longer be used). Performed By: #### C VDTB #### [facility] [address] [place] [address] Dr. Vasyl Bianchi XR CHEST 2 Von [...] MARY GARCIA Date: 2022-01-20 17:44 Normal [facility] Covid-19 PCR (CVDTBH)on 11-23 SARS-CoV-2 (COVID-19) RNA SUSANA+probe Ql (Unsp spec) Not detected Normal NOT DETECTED [facility] Comment on above: Result Comment: This test is not yet approved or cleared by the [place] FDA. When there are no FDA-approved or cleared tests available, and other criteria are met, FDA can make tests available under an emergency access mechanism called an Emergency Use Authorization (EUA). The EUA for this test is supported by the Nonfarm Animal Caretaker of Health and Human Service's (HHS's) declaration [...] SARS-CoV-2. Performed By: #### C VDTBH #### [facility] [address] [place] [address] Dr. Vasyl Bianchi INSULINon 05-11-2021 Insulin 17.0 uIU/mL Normal 2.6-24.9 [facility] Comment on above: Performed By: #### I NSULIN #### [facility] [address] [place] [address] Dr. Vasyl Bianchi CBC AUTO DIFFon 05-10-2021 BASO # 0.0 103/ul Normal 0.0-0.1 [facility] Comment on above: Performed By: #### C BC ####[facility] [address] [place] [address]Dr. Vasyl Bianchi Basophils/100 WBC (Bld) 0.3 % Normal 0.2-2.0 [facility] Comment on above: Performed By: #### C BC ####[facility] [address] [place], [place] [address]Dr. Jillria Arias EO # 0.2 103/ul Normal 0.0-0.7 [facility] Comment on above: Performed By: #### C BC ####[facility] [address] [place], [place] [address]Dr. Vasyl Arias Eosinophils/100 WBC (Bld) 3.0 % Normal 0.9-7.0 [facility] Comment on above: Performed By: #### C BC ####[facility] [address] [place], [place] [address]Dr. Jillria Bianchi Erythrocyte distribution width (RBC) [Ratio] 13.6 % Normal 11.0-15.0 [facility] Comment on above: Performed By: #### C BC ####[facility] [address] [place], [place] [address]Dr. Jillria Bianchi Hematocrit (Bld) [Volume fraction] 39.5 % Critically low 42.0-54.0 [facility] Comment on above: Performed By: #### C BC ####[facility] [address] [place], [place] [address]Dr. Jillria Bianchi Hemoglobin (Bld) [Mass/Vol] 13.2 g/dL Critically low 14.0-18.0 [facility] Comment on above: Performed By: #### C BC ####[facility] [address] [place], [place] [address]Dr. Vasyl Bianchi IG # 0.02 10e3/ul Normal 0.00-0.03 [facility] Comment on above: Performed By: #### C BC ####[facility] [address] [place] [id number]. Vasyl Bianchi IG % 0.3 % Normal 0.0-0.5 [facility] Comment on above: Performed By: #### C BC ####[facility] [address] [place] [address]Dr. Vasyl Bianchi LYMPH # 1.5 103/ul Normal 1.2-3.8 [facility] Comment on above: Performed By: #### C BC ####[facility] [address] [place], [place] [address]Dr. Vasyl Bianchi Lymphocytes/100 WBC (Bld) 20.6 % Normal 20.5-60.0 [facility] Comment on above: Performed By: #### C BC ####[facility] [address] [place], [place] [address]Dr. Vasyl Bianchi MANUAL DIFF REQ NO Normal [facility] Comment on above: Performed By: #### C BC ####[facility] [address] [place] [address]Dr. Jillria Bianchi MCH (RBC) [Entitic mass] 30.6 pg Normal 25.9-34.0 [facility] Comment on above: Performed By: #### C BC ####[facility] [address] [place], [place] [address]Dr. Vasyl Arias MCHC (RBC) [Mass/Vol] 33.4 g/dL Normal 29.9-35.2 [facility] Comment on above: Performed By: #### C BC ####[facility] [address] [place], [place] [address]DrBooker Bianchi MCV (RBC) [Entitic vol] 91.6 fL Normal 80.0-94.0 [facility] Comment on above: Performed By: #### C BC ####[facility] [address] [place], [place] [address]DrBooker Bianchi MONO # 0.5 103/ul Normal 0.3-0.8 [facility] Comment on above: Performed By: #### C BC ####[facility] [address] [place], [place] [id number]. Vasyl Bianchi Monocytes/100 WBC (Bld) 6.8 % Normal 1.7-12.0 [facility] Comment on above: Performed By: #### C BC ####[facility] [address] [place] [address]Dr. Vasyl Bianchi NEUT # 5.1 103/ul Normal 1.4-6.5 [facility] Comment on above: Performed By: #### C BC ####[facility] [address] [place] [address]Dr. Vasyl Bianchi Neutrophils/100 WBC (Bld) 69.0 % Normal 43.0-75.0 [facility] Comment on above: Performed By: #### C BC ####[facility] [address] [place] [address]Dr. Vasyl Bianchi Platelet mean volume (Bld) [Entitic vol] 10.4 fL Normal 9.5-13.5 [facility] Comment on above: Performed By: #### C BC ####[facility] [address] [place] [address]Dr. Vasyl Bianchi PLT 167 103/ul Normal 150-450 [facility] Comment on above: Performed By: #### C BC ####[facility] [address] [place] [address]Dr. Vasyl Bianchi RBC 4.31 106/ul Critically low 4.70-6.10 [facility] Comment on above: Performed By: #### C BC ####[facility] [address] [place] [address]Dr. Vasyl Bianchi WBC 7.3 103/ul Normal 4.0-11.0 [facility] Comment on above: Performed By: #### C BC ####[facility] [address] [place] [address]Dr. Vasyl Bianchi GLYCOHEMOGLOBIN A1Con 2021 ADA RECOMMENDATION ADA THERAPEUTIC TARG ET 6.0 - 7.0 ACTION SUGGESTED > 7.0 Normal [facility] Comment on above: Performed By: #### A 1C #### [facility] [address] [address] [address] Vasyl Bianchi Glucose [Mass/Vol] 235 mg/dL Normal [facility] Comment on above: Performed By: #### A 1C #### [facility] [address] [address] [address] Vasyl Bianchi HbA1c (Bld) [Mass fraction] 9.8 % Critically high <=6.0 [facility] Comment on above: Performed By: #### A 1C #### [facility] [address] [address] [address] Vasyl Bianchi LIPID PROFILEon 05-10-2021 CHOL-HDL RATIO NORM SEE BELOW Normal [facility] Comment on above: Result Comment: 3.3 - 4.4 LOW RISK 4.4 - 7.1 AVERAGE RISK 7.1 - 11.0 MODERATE RISK >11.0 HIGH RISK Performed By: #### C MP, LIPID #### [facility] [address] [address] [address] Vasyl Bianchi Cholesterol [Mass/Vol] 111 mg/dL Normal <=200 [facility] Comment on above: Performed By: #### C MP, LIPID #### [facility] [address] [address] [address] Vasyl Bianchi Cholesterol in HDL [Mass/Vol] 33 mg/dL Normal [facility] Comment on above: Performed By: #### C MP, LIPID #### [facility] [address] [address] [address] Vasyl Bianchi Cholesterol in LDL [Mass/Vol] 46.2 mg/dL Normal [facility] Comment on above: Performed By: #### C MP, LIPID #### [facility] [address] [address] [address] Vasyl Bianchi Cholesterol.total/Ch olesterol in HDL [Mass ratio] 3.4 {ratio} Normal [facility] Comment on above: Performed By: #### C MP, LIPID #### [facility] [address] [address] [address] Vasyl Bianchi HDL NORMAL > or = 60 mg/dl - LO W CARDIOVASCULAR RISK <40 mg/dl - HIGH CARDIOVASCULAR RISK Normal [facility] Comment on above: Performed By: #### C MP, LIPID #### [facility] [address] [address] [address] Vasyl Bianchi LDL CALC NORMAL SEE BELOW Normal [facility] Comment on above: Result Comment: <100 mg/dl OPTIMAL 100 - 129 mg/dl NEAR OR ABOVE OPTIMAL 130 - 159 mg/dl BORDERLINE HIGH 160 - 189 mg/dl HIGH >190 mg/dl VERY HIGH Performed By: #### C MP, LIPID #### [facility] [address] [place] [address] Dr. Vasyl Bianchi Triglyceride [Mass/Vol] 159 mg/dL Critically high <=150 [facility] Comment on above: Performed By: #### C MP, LIPID #### [facility] [address] [place] [address] Dr. Vasyl Bianchi VLDL CALC 31.8 mg/dL Normal [facility] Comment on above: Performed By: #### C MP, LIPID #### [facility] [address] [place] [address] Dr. Vasyl Bianchi PROF 14(COMP METB)on 022 Albumin [Mass/Vol] 3.6 g/dL Normal 3.5-5.0 [facility] Comment on above: Performed By: #### C MP, LIPID #### [facility] [address] [place] [address] Dr. Vasyl Bianchi Albumin/Globulin [Mass ratio] 1.0 {ratio} Normal [facility] Comment on above: Performed By: #### C MP, LIPID #### [facility] [address] [place] [address] Dr. Vasyl Bianchi ALP [Catalytic activity/Vol] 74 U/L Normal 38-126 [facility] Comment on above: Performed By: #### C MP, LIPID #### [facility] [address] [place] [address] Dr. Vasyl Bianchi ALT [Catalytic activity/Vol] 41 U/L Normal 21-72 [facility] Comment on above: Performed By: #### C MP, LIPID #### [facility] [address] [place] [address] Dr. Vasyl Bianchi Anion gap [Moles/Vol] 13.2 mmol/L Normal [facility] Comment on above: Performed By: #### C MP, LIPID #### [facility] [address] [place] [address] Dr. Vasyl Bianchi AST [Catalytic activity/Vol] 19 U/L Normal 17-59 [facility] Comment on above: Performed By: #### C MP, LIPID #### [facility] [address] [place] [address] Dr. Vasyl Bianchi Bilirubin [Mass/Vol] 1.1 mg/dL Normal 0.2-1.3 [facility] Comment on above: Performed By: #### C MP, LIPID #### [facility] [address] [place] [address] Dr. Vasyl Bianchi Calcium [Mass/Vol] 9.4 mg/dL Normal 8.4-10.2 [facility] Comment on above: Performed By: #### C MP, LIPID #### [facility] [address] [place] [address] Dr. Vasyl Bianchi Chloride [Moles/Vol] 102 mmol/L Normal 98-107 [facility] Comment on above: Performed By: #### C MP, LIPID #### [facility] [address] [place] [address] Dr. Vasyl Bianchi CO2 [Moles/Vol] 28.0 mmol/L Normal 22.0-30.0 [facility] Comment on above: Performed By: #### C MP, LIPID #### [facility] [address] [place] [address] Dr. Vasyl Bianchi Creatinine [Mass/Vol] 1.11 mg/dL Normal 0.66-1.25 [facility] Comment on above: Performed By: #### C MP, LIPID #### [facility] [address] [place] [address] Dr. aVsyl Bianchi EGFR-AF SPANISH >60 Normal >=60 [facility] Comment on above: Performed By: #### C MP, LIPID #### [facility] [address] [place] [address] Dr. Vasyl Bianchi EGFR-NON AF SPANISH >60 Normal >=60 [facility] Comment on above: Performed By: #### C MP, LIPID #### [facility] [address] [place] [address] Dr. Vasyl Bianchi Globulin (S) [Mass/Vol] 3.7 g/dL Normal [facility] Comment on above: Performed By: #### C MP, LIPID #### [facility] [address] [place] [address] Dr. Vasyl Bianchi Glucose [Mass/Vol] 151 mg/dL Critically high 74-106 [facility] Comment on above: Performed By: #### C MP, LIPID #### [facility] [address] [place] [address] Dr. Vasyl Bianchi Potassium [Moles/Vol] 4.2 mmol/L Normal 3.4-5.0 [facility] Comment on above: Performed By: #### C MP, LIPID #### [facility] [address] [place] [address] Dr. Vasyl Bianchi Protein [Mass/Vol] 7.3 g/dL Normal 6.1-8.2 [facility] Comment on above: Performed By: #### C MP, LIPID #### [facility] [address] [place] [address] Dr. Vasyl Bianchi Sodium [Moles/Vol] 139 mmol/L Normal 137-145 [facility] Comment on above: Performed By: #### C MP, LIPID #### [facility] [address] [place] [address] Dr. Vasyl Bianchi Urea nitrogen [Mass/Vol] 17.0 mg/dL Normal 9.0-20.0 [facility] Comment on above: Performed By: #### C MP, LIPID #### [facility] [address] [place] [address] Dr. Vasyl Bianchi Urea nitrogen/Creatinine [Mass ratio] 15.3 mg/mg Normal [facility] Comment on above: Performed By: #### C MP, LIPID #### [facility] [address] [place] [address] Dr. Vasyl Bianchi US ABD AORTA DIAGNOSTICon [...] by: NIKO ELIAS Date: 2021-05-10 09:40 Normal [facility] WRIST RIGHT 3 Son 12-15-19 21 WRIST RIGHT 3 S [facility] Department of Radiology [address] [place] [id number] ======== Patient Name: MINO VANESSA : 1960 Sex: M Age: Race: White Pt. Location: Patient Status: D Ordered Date: 12/14/2020 4:20:00 PM Completed Date: 12/14/2020 04:29 PM Requesting Provider: SELWYN MADRIGAL Attending Provider: SELWYN MADRIGAL Report Copy To: DEISY BRICENO JR Signs & Symptoms: M25.531 Pain in right wrist I10 History: [place] Comments: evaluate Exam: WRIST RIGHT 3 S ======== WRIST RIGHT 3 VWS HISTORY: Wrist pain. COMPARISON: None. IMPRESSION: 1. Postoperative changes from trapezium resection, small osseous densities at the expected location of the trapezium likely from remote surgery. 2. 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 Osteopenia. No acute fracture. No dislocation. Electronically signed: Antonio Horta. Transcribed by: [email or web address], User Resident: Electronically Signed by: ANTONIO HORTA @ 12/15/2020 02:23 PM Normal [facility] Comment on above: Order Comment: evalu ate Vital Signs Date Time Vital Sign Value Performing Clinician Facility 04-29-2024 16:19-0500 Body height 198.1 cm Stacy Petznick DO Work Phone: [facility] 04-29-2024 16:19-0500 Body mass index (BMI) [Ratio] 26.69 kg/m2 Stacy Petznick DO Work Phone: [facility] 04-29-2024 16:19-0500 Body temperature 98.71 [degF] Stacy Petznick DO Work Phone: [facility] 04-29-2024 16:19-0500 Body weight 104.78 kg Stacy Petznick DO Work Phone: [facility] 04-29-2024 16:19-0500 Diastolic blood pressure 72 mm[Hg] Stacy Petznick DO Work Phone: [facility] 04-29-2024 16:19-0500 Heart rate 88 /min Stacy Petznick DO Work Phone: [facility] 04-29-2024 16:19-0500 SaO2% (BldA) [Mass fraction] 98 % Stacy Petznick DO Work Phone: [facility] 04-29-2024 16:19-0500 Systolic blood pressure 120 mm[Hg] Stacy Petznick DO Work Phone: [facility] 01-25-2024 09:06-0400 Body height 198.1 cm Stacy Petznick DO Work Phone: [facility] 01-25-2024 09:06-0400 Body mass index (BMI) [Ratio] 26.93 kg/m2 Stacy Petznick DO Work Phone: [facility] 01-25-2024 09:06-0400 Body temperature 98.71 [degF] Stacy Petznick DO Work Phone: [facility] 01-25-2024 09:06-0400 Body weight 105.69 kg Stacy Petznick DO Work Phone: [facility] 01-25-2024 09:06-0400 Diastolic blood pressure 62 mm[Hg] Stacy Petznick DO Work Phone: [facility] 01-25-2024 09:06-0400 Heart rate 87 /min Stacy Petznick DO Work Phone: [facility] 01-25-2024 09:06-0400 SaO2% (BldA) [Mass fraction] 96 % Stacy Petznick DO Work Phone: [facility] 01-25-2024 09:06-0400 Systolic blood pressure 124 mm[Hg] Stacy Petznick DO Work Phone: [facility] 12-14-2023 10:03-0400 Body height 198.1 cm Stacy Petznick DO Work Phone: [facility] 12-14-2023 10:03-0400 Body mass index (BMI) [Ratio] 27.16 kg/m2 Stacy Petznick DO Work Phone: [facility] 12-14-2023 10:03-0400 Body temperature 98.71 [degF] Stacy Petznick DO Work Phone: [facility] 12-14-2023 10:03-0400 Body weight 106.59 kg Stacy Petznick DO Work Phone: [facility] 12-14-2023 10:03-0400 Diastolic blood pressure 70 mm[Hg] Stacy Petznick DO Work Phone: [facility] 12-14-2023 10:03-0400 Heart rate 75 /min Stacy Petznick DO Work Phone: [facility] 12-14-2023 10:03-0400 SaO2% (BldA) [Mass fraction] 97 % Stacy Dennis DO Work Phone: [facility] 12-14-2023 10:03-0400 Systolic blood pressure 124 mm[Hg] Stacy Wilkinsonick DO Work Phone: [facility] 10-07-2023 14:21-0400 Body height 198.12 cm [facility] 10-07-2023 14:21-0400 Body mass index (BMI) [Ratio] 27.3 kg/m2 [facility] 10-07-2023 14:21-0400 Body temperature 98.9 [degF] [facility] 10-07-2023 14:21-0400 Body weight 107.55 kg [facility] 10-07-2023 14:21-0400 Diastolic blood pressure 78 mm[Hg] [facility] 10-07-2023 14:21-0400 Heart rate 98 /min [facility] 10-07-2023 14:21-0400 Respiratory rate 18 /min [facility] 10-07-2023 14:21-0400 SaO2% (BldA) [Mass fraction] 97 % [facility] 10-07-2023 14:21-0400 Systolic blood pressure 148 mm[Hg] [facility] Encounters Encounter Date Encounter Type Care Provider Facility Start: 04-29-2024 End: 04-29-2024 Office outpatient visit 25 minutes Stacy Dennis DO Work Phone: [facility] Comment on above: Type 2 diabetes celia itus with peripheral neuropathy (CMS/HCC) Start: 02-04-2024 End: 02-04-2024 Telephone encounter Stacy Dennis DO Work Phone: [facility] Start: 01-25-2024 End: 01-25-2024 Bamboo flowsheet Stacy Dennis DO Work Phone: [facility] Start: 01-25-2024 End: 01-25-2024 Bamboo flowsheet Stacy Dennis DO Work Phone: [facility] Start: 01-25-2024 End: 01-25-2024 Office outpatient visit 25 minutes Stacy Dennis DO Work Phone: [facility] 230 Comment on above: Type 2 diabetes celia itus with hyperglycemia, with long-term current use of insulin (CMS/HCC) (Primary Dx); 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) Start: 01-25-2024 End: 01-25-2024 ambulatory STACY DENNIS Not Available Start: 01-23-2024 End: 01-23-2024 Telephone encounter Stacy Dennis DO Work Phone: [facility] [address] Start: 12-14-2023 End: 12-14-2023 ambulatory STACY DENNIS Not Available Start: 12-14-2023 End: 12-14-2023 Office outpatient new 45 minutes Stacy Dennis DO Work Phone: [facility] 230 Comment on above: Type 2 diabetes celia itus with peripheral neuropathy ([facility]/HCC) (Primary Dx) Start: 10-07-2023 End: 10-07-2023 ambulatory MATHEMATICAL SCIENTIST-C Kimmie Roberto Work Phone: [facility] Work Phone: Start: 10-07-2023 End: 10-07-2023 Departed Referred MATHEMATICAL SCIENTIST-C Kimmie Roberto Work Phone: [facility] [place] Work Phone: Start: 10-07-2023 End: 10-07-2023 ambulatory [facility] Work Phone: Start: 10-07-2023 End: 10-07-2023 Patient encounter procedure [facility] Work Phone: Start: 05-02-2022 [...] medical examination without abnormal findings KIMMIE ROBERTO [facility] Start: 05-10-2021 End: 05-11-2021 ambulatory KIMMIE ROBERTO Facility:[facility]1 Start: 05-10-2021 End: 05-11-2021 Encounter for general adult medical examination without abnormal findings KIMMIE ROBERTO Facility:[facility]1 Procedures Date Procedure Procedure Detail Performing Clinician Start: 04-29-2024 Hemoglobin glycosyla marky a1c Stacy Dennis DO Work Phone: Start: 01-25-2024 Hemoglobin glycosyla marky a1c Stacy Dennis DO Work Phone: Start: 05-10-2021 PSA screening KIMMIE PEREIRA Comment on above: Performed By: #### P [facility] ####[facility] [id number] [place] [id number] Bianchi Plan of Treatment Date Care Activity Detail Author Start: 01-15-2026 Glaucoma screening Diabetes: R etinopathy Screening [facility] Start: 07-28-2024 End: 07-28-2024 Patient encounter procedure 07/28/2024 3:00 PM EDT Office Visit [facility] [address] [place] [address] Stacy Dennis DO [address] [place] [address] [facility] [address] Start: 07-28-2024 Hemoglobin A1c measurement Diabetes: Hemoglobin A1C [facility] Start: 04-28-2024 End: 04-28-2024 Patient encounter procedure 04/28/2024 9:15 AM EST Office Visit [facility] [address] [place] [phone] Stacy Dennis, DO [address] [place] [address] [facility] 230 Start: 01-25-2024 End: 01-25-2024 Patient encounter procedure [facility] 230 Comment on above: Arrived Start: 01-11-2024 End: 01-11-2024 Patient encounter procedure 01/11/2024 1:30 PM EDT Office Visit [facility] [address] [place] [phone] PetStacy barrientos M, DO [address] [place] [address] [facility] 230 Start: 12-23-2023 Influenza vaccination Influenza Vacc ine (#1) [facility] Start: 10-08-2023 [facility] Start: 10-07-2023 Microscopic observat ion [Identifier] in Unspecified specimen by Gram stain [facility] Start: 2023 Pneumococcal Vaccine : 65+ Years (1 of 1 - PCV) Pneumococcal Vaccine: 65+ Years (1 of 1 - PCV) [facility] Start: 1977 Urine screening for protein Diabetes: Urine Protein Screening [facility] Start: 01-31-1964 Pneumococcal Vaccine : 65+ Years (1 of 2 - PCV) Pneumococcal Vaccine: 65+ Years (1 of 2 - PCV) [facility] Start: 1960 Screening for malign ant neoplasm of colon [facility] Bacteria identified in Unspecified specimen by Aerobe culture [facility] Bacteria identified in Unspecified specimen by Anaerobe culture [facility] Immunizations Immunization Date Immunization Notes Care Provider Fa cility 03-20-2023 Influenza, Seasonal, Quadrivalent, Adjuvanted Stacy Petznick DO Work Phone: [facility] 03-20-2023 influenza virus vacc ine, unspecified formulation Stacy Petznick DO Work Phone: [facility] 03-19-2022 influenza, injectabl e, quadrivalent, preservative free Stacy Petznick DO Work Phone: [facility] 04-22-2020 Influenza, injectabl e, Madin Priscilla Canine Kidney, preservative free, quadrivalent Stacy Petznick DO Work Phone: [facility] 04-20-2019 Influenza, injectabl e, Madin [place] Canine Kidney, preservative free, quadrivalent Stacy Petznick DO Work Phone: [facility] 04-10-2018 Influenza, injectabl e, Madin Priscilla Canine Kidney, preservative free, quadrivalent Stacy Petznick DO Work Phone: [facility] 04-22-2016 influenza, seasonal, injectable, preservative free Stacy Petznick DO Work Phone: [facility] 02-15-2015 influenza, seasonal, injectable, preservative free Stacy Petznick DO Work Phone: [facility] 04-11-2014 influenza, seasonal, injectable Stacy Petznick DO Work Phone: [facility] 04-22-2013 influenza, seasonal, injectable Stacy Petznick DO Work Phone: [facility] Payers Date Payer Category Payer Self-pay 2019 Private Health Insurance [id number] 1961 Self-pay [id number] 1961 Unknown [id number] 1960 Unknown [id number] 2.16.84 [id number] 1960 Unknown [id number] 2.16.84 [id number] 1960 Unknown [id number] 2.16.84 [id number] 1960 Unknown [id number] 2.16.84 [id number] 1960 Unknown [id number] 2.16.84 [id number] 1960 Unknown [id number] 2.16.84 [id number] 1960 Unknown [id number] 2.16.84 [id number] 1960 Unknown [id number] 2.16.84 [id number] 1960 Unknown [id number] 2.16.84 [id number] 1960 Unknown [id number] 2.16.84 [id number] Unknown [id number] 2.16.8 [id number] Social History Date Type Detail Facility Start: 10-07-2023 End: 12-14-2023 Tobacco smoking status NHIS Ex-smoker (finding) [facility] Start: 1960 Sex Assigned At Male [facility] History of tobacco use Current smoker [facility] History of tobacco use Cigarette Smoker [facility] Start: 12-14-2023 Tobacco use and exposure Smokeless tobacco non-user [facility] Start: 12-14-2023 End: 04-29-2024 Alcoholic beverage intake Ex-drinker (finding) [facility] Start: 12-14-2023 End: 04-29-2024 History of Social function [facility] Start: 12-14-2023 End: 04-29-2024 Alcohol Use Disorder Identification Test - Consumption [AUDIT-C] [facility] How often to you hav e a drink containing alcohol? Never [facility] How many standard dr inks containing alcohol do you have on a typical day? Patient does not drink [facility] Start: 1960 Sex assigned at Not on file [facility] Medical Equipment Procedure Code Equipment Code Equipment Origin al Text Equipment Identifier Dates Use with injections Start : 12-03-2023 Clinical Notes 12-17-2023 to 05-01-2024 Stacy Dennis, - 05/01/2024 8:42 PM Avtar Dennis, DO - 04/29/2024 4:30 PM ESTTelephone Encounter - Joanne Branch - 02/04/2024 10:25 AM EDT Note Date & Type Note Facility 05-01-2024 History of Presen t illness Narrative Associated Problem(s): Type 2 diabetes mellitus with peripheral neuropathy ([facility]) During the appointment today all pertinent labs, imaging, health maintenance, and glucose readings were reviewed. Encouraged to check blood glucose throughout the day with some fasting and some PP readings. They are to bring their glucose meter/cgm in to all appointments. All of the patients questions, treatment options, and current care plan and goals were discussed. A copy of this along with pertinent instructions were given to the patient at the end of the appointment. The patient voices understanding of all of this and is to call in between appointments if they have any problems or questions. Mino Vanessa is struggling to gain control of their diabetes. I am very concerned for diabetes related complications. , The patient is wearing their cgm on a daily basis and making decisions in regards to adjusting insulin daily as well for at least the last 60 days , Discussed dietary changes at length. Encouraged to limit simple carbs and focus more on healthy protein/fat with all meals and snacks. They should also avoid any sugary drinks. , Discussed importance of checking blood glucose regularly and bringing them in to their appointment in order for me to better adjust their medications. , Instructions given today include: Insulin instructions and Dietary education. Will increase insulin at dinner. He is to keep working on improving his diet. Images from the original note were not included. Mino Vanessa is a 64 y.o. male presents with chief complaint of Diabetes HPI: Diabetes Mellitus Follow-up: Mino Vanessa is here for follow-up evaluation of diabetes mellitus. The initial diagnosis of diabetes was made around 2013 Complications include: peripheral neuropathy He has been checking his blood glucose once a day in the morning. Bg running 200-250 Last A1c: 8.8 on 01/25/24 Eye exam: 01/16/2024 Current concerns include: Used the FreeGutCheckyle catrachita until March. He was frustrated with the reading he was getting compared to finger sticks. He has went back to once a day finger sticks He was sick for 2 weeks about last month Bg levels: are higher compared to last visit. He is under more stress with his step daughter health and brother health Diet: limiting carbs Snacks: peanuts Drinks; black coffee, powerade zero, zero sugar pop Exercise: none Hypoglycemia: last month a few times before bed Takes about 20-25 units with his meals. SUBJECTIVE: PROBLEM LIST SOCIAL ALLERGIES: Patient Active Problem List Diagnosis Abdominal aortic aneurysm (CMS/HCC) Asthenia Carpal tunnel syndrome Osteoarthritis of carpometacarpal (CMC) joint of thumb 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) Dyslipidemia (CMS/HCC) Plantar fasciitis S/P cervical spinal fusion Thrombocytopenic disorder (CMS/HCC) Type 2 diabetes mellitus with hyperglycemia, with long-term current use of insulin (CMS/HCC) Social History Tobacco Use Smoking status: Former Types: Cigarettes Smokeless tobacco: Never Substance Use Topics Alcohol use: Not Currently Drug use: Never No Known Allergies Synopsis [facility] 05/01/2024 00:00 04/29/2024 Antidiabetic medications Dulaglutide 0.75 mg Weekly SC 0.75 mg Weekly SC Insulin Detemir 60 Units q AM SC -Discontinued Patient taking differently: 40 Units q AM as of 04/29/2024 4:30 PM Insulin Glargine 50 Units Daily SC 50 Units Daily SC Insulin Lispro 10 units small meals and 20 units large meals (max daily 36 units) (100 UNIT/ML SOPN)-Discontinued (Dose adjustm) 10 units small meals and 20 units large meals (max daily 36 units) (100 UNIT/ML SOPN) Insulin Lispro 20 units small meals and 30 units large meals (max daily 100) (100 UNIT/ML SOPN) metFORMIN HCl 500 mg BID with meals PO (500 MG TABS) 500 mg BID with meals PO (500 MG TABS) Labs MHPT A1C 9.3 Outpatient prescription Medication marked as long-term Patient taking differently or Patient-reported The ASCVD Risk score (Cliff BLACK, et al., 2019) failed to calculate for the following reasons: Cannot find a previous HDL lab Cannot find a previous total cholesterol lab REVIEW OF SYMPTOMS: Review of Systems Constitutional: Positive for fatigue. Negative for appetite change and unexpected weight change. Eyes: Negative for visual disturbance. Respiratory: Negative for cough, shortness of breath and wheezing. Cardiovascular: Negative for chest pain, palpitations and leg swelling. Neurological: Positive for numbness. Endocrine: Negative for polydipsia, polyphagia and polyuria. OBJECTIVE: 04/29/2024 4:19 PM 01/25/2024 9:06 AM 12/14/2023 10:03 AM Vitals BMI 26.69 kg/m2 26.93 kg/m2 27.16 kg/m2 Systolic 120 124 124 Diastolic 72 62 70 Heart Rate 88 87 75 Temp 98.7 F 98.7 F 98.7 F Height (in) 6' 6 6' 6 6' 6 Weight (lb) 231 233 235 Visit Report Report Report Report Physical Exam Constitutional: General: He is not in acute distress. Appearance: Normal appearance. Cardiovascular: Rate and Rhythm: Normal rate and regular rhythm. Heart sounds: No murmur heard. No friction rub. No gallop. Pulmonary: Breath sounds: Normal breath sounds. No wheezing, rhonchi or rales. Musculoskeletal: General: No swelling. Neurological: Mental Status: He is alert. ASSESSMENT AND PLAN: Problem List Items Addressed This Visit 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) During the appointment today all pertinent labs, imaging, health maintenance, and glucose readings were reviewed. Encouraged to check blood glucose throughout the day with some fasting and some PP readings. They are to bring their glucose meter/cgm in to all appointments. All of the patients questions, treatment options, and current care plan and goals were discussed. A copy of this along with pertinent instructions were given to the patient at the end of the appointment. The patient voices understanding of all of this and is to call in between appointments if they have any problems or questions. Mino Vanessa is struggling to gain control of their diabetes. I am very concerned for diabetes related complications. , The patient is wearing their cgm on a daily basis and making decisions in regards to adjusting insulin daily as well for at least the last 60 days , Discussed dietary changes at length. Encouraged to limit simple carbs and focus more on healthy protein/fat with all meals and snacks. They should also avoid any sugary drinks. , Discussed importance of checking blood glucose regularly and bringing them in to their appointment in order for me to better adjust their medications. , Instructions given today include: Insulin instructions and Dietary education. Will increase insulin at dinner. He is to keep working on improving his diet. Relevant Medications insulin glargine (Lantus SoloStar) 100 UNIT/ML pen Other Relevant Orders POCT glycosylated hemoglobin (Hb A1C) docked device (Completed) Follow up in about 3 months (around 07/28/2024) for Recheck. Patient's Medications New Prescriptions INSULIN GLARGINE (LANTUS SOLOSTAR) 100 UNIT/ML PEN Inject 50 Units under the skin Daily Previous Medications ASPIRIN 81 MG EC TABLET Take 1 tablet by mouth Daily ATORVASTATIN (LIPITOR) 40 MG TABLET Take 40 mg by mouth Daily B-D UF III MINI PEN NEEDLES 31G X 5 MM MISC Use with injections CONTINUOUS GLUCOSE PHOTOGRAPHER APPRENTICE (FREESTYLE CATRACHITA 3 READER) DEVICE 1 Device See administration instructions CONTINUOUS GLUCOSE SENSOR (FREESTYLE CATRACHITA 3 PLUS SENSOR) MISC 1 each See administration instructions DULAGLUTIDE (TRULICITY) 0.75 MG/0.5ML SOLUTION PEN-INJECTOR Inject 0.75 mg under the skin 1 (one) time per week LISINOPRIL 5 MG TABLET Take 5 mg by mouth Daily METFORMIN (GLUCOPHAGE) 500 MG TABLET Take 500 mg by mouth in the morning and 500 mg in the evening. Take with meals. Modified Medications Modified Medication Previous Medication HUMALOG KWIKPEN 100 UNIT/ML INJECTION HumaLOG KWIKPEN 100 UNIT/ML injection 20 units small meals and 30 units large meals (max daily 100) 10 units small meals and 20 units large meals (max daily 36 units) Discontinued Medications LEVEMIR FLEXTOUCH 100 UNIT/ML PEN Inject 60 Units under the skin in the morning. I have reviewed and reconciled the history and medication list with the patient today. documented in this encounter [facility] 02-04-2024 Telephone encount er Note Can please send [employer] system prescription to [facility] in [place]. The medicine shop was not able to fill it. [facility] 02-04-2024 Miscellaneous Notes Formattin g of this note might be different from the original. Can please send catrachita system prescription to [facility] in [place]. The medicine shop was not able to fill it. documented in this encounter [facility] 01-25-2024 History of Presen t illness Narrative Associated Problem(s): 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) During the appointment today all pertinent labs, imaging, health maintenance, and glucose readings were reviewed. Encouraged to check blood glucose throughout the day with some fasting and some PP readings. They are to bring their glucose meter/cgm in to all appointments. All of the patients questions, treatment options, and current care plan and goals were discussed. A copy of this along with pertinent instructions were given to the patient at the end of the appointment. The patient voices understanding of all of this and is to call in between appointments if they have any problems or questions. Mino Vanessa is making improvements and encouraged on this. , Discussed dietary changes at length. Encouraged to limit simple carbs and focus more on healthy protein/fat with all meals and snacks. They should also avoid any sugary drinks. , Instructed on the importance of taking insulin before eating. If it has been more than 30-45 min since eating they should not give the meal dose but should just give a correction insulin dose. , Instructions given today include: Insulin instructions and Dietary education. Will increase levemir and decrease humalog for his meals. Discussed option of increasing trulicity but he wishes to stay at the current dose. Images from the original note were not included. Mino Vanessa is a 63 y.o. male presents with chief complaint of Diabetes HPI: Diabetes Mellitus Follow-up: Mino Vanessa is here for follow-up evaluation of diabetes mellitus. The initial diagnosis of diabetes was made around 2013 Complications include: peripheral neuropathy He has been checking his blood glucose once a day in the morning. Last A1c: 11.2 on 10/20/2023 Eye exam: 01/16/2024 Current concerns include: Lat office visit 12/14/2023 States his bg levels have been 150-170 in the am. Cleaning up his diet, limiting sweets, no chip no regular powerade. Tolerating trulicity no SE with it Diet: limiting carbs Snacks: peanuts Drinks; black coffee, powerade zero Exercise: none Hypoglycemia: once since his last visit after dinner. SUBJECTIVE: PROBLEM LIST SOCIAL ALLERGIES: Patient Active Problem List Diagnosis Abdominal aortic aneurysm (CMS/HCC) Asthenia Carpal tunnel syndrome Osteoarthritis of carpometacarpal (CMC) joint of thumb Type 2 diabetes mellitus with peripheral neuropathy ([facility]/HCC) Dyslipidemia ([facility]) Plantar fasciitis S/P cervical spinal fusion Thrombocytopenic disorder ([facility]) Type 2 diabetes mellitus with hyperglycemia, with long-term current use of insulin ([facility]) Social History Tobacco Use Smoking status: Former Types: Cigarettes Smokeless tobacco: Never Substance Use Topics Alcohol use: Not Currently Drug use: Never No Known Allergies Synopsis [facility] 01/25/2024 12/17/2023 12/14/2023 Antidiabetic medications Dulaglutide 0.75 mg Weekly SC (0.75 MG/0.5ML SOAJ) -Discontinued Dulaglutide 0.75 mg Weekly SC 0.75 mg Weekly SC Empagliflozin 25 mg Daily PO (25 MG TABS) -Discontinued No sig Glimepiride 4 mg Daily before breakfast PO (4 MG TABS)-Discontinued 4 mg Daily before breakfast PO (4 MG TABS) No sig Insulin Aspart (100 UNIT/ML SOPN) -Discontinued Insulin Detemir 40 Units q AM SC (100 UNIT/ML SOPN)-Discontinued (Dose adjustm) 40 Units q AM SC (100 UNIT/ML SOPN) Insulin Detemir 55 Units q AM SC-Discontinued (Dose adjustm) 55 Units q AM SC Insulin Detemir 60 Units q AM SC Insulin Lispro 18 units qAC (100 UNIT/ML SOPN)-Discontinued (Dose adjustm) 18 units qAC (100 UNIT/ML SOPN) Insulin Lispro 12 units small meals and 24 units large meals (max daily 36 units) (100 UNIT/ML SOPN)-Discontinued (Dose adjustm) 12 units small meals and 24 units large meals (max daily 36 units) (100 UNIT/ML SOPN) Insulin Lispro 10 units small meals and 20 units large meals (max daily 36 units) (100 UNIT/ML SOPN) metFORMIN HCl 500 mg BID with meals PO (500 MG TABS) 500 mg BID with meals PO (500 MG TABS) 500 mg BID with meals PO (500 MG TABS) No sig Labs MHPT A1C 8.8 Outpatient prescription Medication marked as long-term Patient-reported medication REVIEW OF SYMPTOMS: Review of Systems Constitutional: Negative for appetite change, fatigue and unexpected weight change. Eyes: Negative for visual disturbance. Respiratory: Negative for cough, shortness of breath and wheezing. Cardiovascular: Negative for chest pain, palpitations and leg swelling. Neurological: Positive for numbness. Endocrine: Negative for polydipsia, polyphagia and polyuria. OBJECTIVE: 01/25/2024 9:06 AM 12/14/2023 10:03 AM Vitals BMI 26.93 kg/m2 27.16 kg/m2 Systolic 124 124 Diastolic 62 70 Heart Rate 87 75 Temp 98.7 F 98.7 F Height (in) 6' 6 6' 6 Weight (lb) 233 235 Visit Report Report Report Physical Exam Constitutional: General: He is not in acute distress. Appearance: Normal appearance. Cardiovascular: Rate and Rhythm: Normal rate and regular rhythm. Heart sounds: No murmur heard. No friction rub. No gallop. Pulmonary: Breath sounds: Normal breath sounds. No wheezing, rhonchi or rales. Musculoskeletal: General: No swelling. Neurological: Mental Status: He is alert. ASSESSMENT AND PLAN: Problem List Items Addressed This Visit 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) During the appointment today all pertinent labs, imaging, health maintenance, and glucose readings were reviewed. Encouraged to check blood glucose throughout the day with some fasting and some PP readings. They are to bring their glucose meter/cgm in to all appointments. All of the patients questions, treatment options, and current care plan and goals were discussed. A copy of this along with pertinent instructions were given to the patient at the end of the appointment. The patient voices understanding of all of this and is to call in between appointments if they have any problems or questions. Mino Vanessa is making improvements and encouraged on this. , Discussed dietary changes at length. Encouraged to limit simple carbs and focus more on healthy protein/fat with all meals and snacks. They should also avoid any sugary drinks. , Instructed on the importance of taking insulin before eating. If it has been more than 30-45 min since eating they should not give the meal dose but should just give a correction insulin dose. , Instructions given today include: Insulin instructions and Dietary education. Will increase levemir and decrease humalog for his meals. Discussed option of increasing trulicity but he wishes to stay at the current dose. Relevant Orders POCT glycosylated hemoglobin (Hb A1C) docked device (Completed) Type 2 diabetes mellitus with hyperglycemia, with long-term current use of insulin ([facility]) - Primary Follow up in about 3 months (around 04/26/2024) for Recheck. Patient's Medications New Prescriptions No medications on file Previous Medications ASPIRIN 81 MG EC TABLET Take 1 tablet by mouth Daily ATORVASTATIN (LIPITOR) 40 MG TABLET Take 40 mg by mouth Daily B-D UF III MINI PEN NEEDLES 31G X 5 MM MISC Use with injections CONTINUOUS GLUCOSE PHOTOGRAPHER APPRENTICE (FREESTYLE CATRACHITA 3 READER) DEVICE 1 Device See administration instructions CONTINUOUS GLUCOSE SENSOR (FREESTYLE CATRACHITA 3 SENSOR) MISC Inject 1 Device under the skin every 14 (fourteen) days DULAGLUTIDE (TRULICITY) 0.75 MG/0.5ML SOLUTION PEN-INJECTOR Inject 0.75 mg under the skin 1 (one) time per week LISINOPRIL 5 MG TABLET Take 5 mg by mouth Daily METFORMIN (GLUCOPHAGE) 500 MG TABLET Take 500 mg by mouth in the morning and 500 mg in the evening. Take with meals. Modified Medications Modified Medication Previous Medication HUMALOG KWIKPEN 100 UNIT/ML INJECTION HumaLOG KWIKPEN 100 UNIT/ML injection 10 units small meals and 20 units large meals (max daily 36 units) 12 units small meals and 24 units large meals (max daily 36 units) LEVEMIR FLEXTOUCH 100 UNIT/ML PEN Levemir FlexTouch 100 UNIT/ML pen Inject 60 Units under the skin in the morning. Inject 55 Units under the skin in the morning. Discontinued Medications No medications on file I have reviewed and reconciled the history and medication list with the patient today. documented in this encounter [facility] 01-23-2024 Telephone encount er Note Just wanted to check it was ok to schedule pt for 01/24. He was a no show yesterday. [facility] 01-23-2024 Miscellaneous Notes Formattin g of this note might be different from the original. Just wanted to check it was ok to schedule pt for 01/24. He was a no show yesterday. documented in this encounter [facility] 12-17-2023 History of Presen t illness Narrative Associated Problem(s): 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) During the appointment today all pertinent labs, imaging, health maintenance, and glucose readings were reviewed. Encouraged to check blood glucose throughout the day with some fasting and some PP readings. They are to bring their glucose meter/cgm in to all appointments. All of the patients questions, treatment options, and current care plan and goals were discussed. A copy of this along with pertinent instructions were given to the patient at the end of the appointment. The patient voices understanding of all of this and is to call in between appointments if they have any problems or questions. Mino Vanessa is struggling to gain control of their diabetes. I am very concerned for diabetes related complications. , Discussed dietary changes at length. Encouraged to limit simple carbs and focus more on healthy protein/fat with all meals and snacks. They should also avoid any sugary drinks. , Discussed importance of checking blood glucose regularly and bringing them in to their appointment in order for me to better adjust their medications. , Instructed on the importance of taking insulin before eating. If it has been more than 30-45 min since eating they should not give the meal dose but should just give a correction insulin dose. , Instructed on the proper insulin injection technique either in the abdomen, upper outer thigh, or back of the arm. They are to rotate injection sites to prevent scar tissue. , Instructions given today include: Hypoglycemia management, Sick day management, Insulin instructions, Dietary education, and Management with exercise/activity. Will increase levemir and adjust his humalog. Ok to start trulicity. Will stop glimepiride to decrease the risk for hypoglycemia since he is on prandial insulin. Will work on getting him a catrachita 3 cgm. Images from the original note were not included. Mino Vanessa is a 63 y.o. male presents with chief complaint of new diabetes only appt HPI: Diabetes Mellitus Initial: Patient here for initial evaluation of diabetes mellitus. The initial diagnosis of diabetes was made around 2013 Symptoms at diagnosis include none. Dx through blood work Previously tried medications include: jardiance- frequent urination Complications include: peripheral neuropathy He has been checking his blood glucose once a day in the morning. Last A1c: 11.2 on 10/20/2023 Eye exam: Current concerns include: He has been managed by his pcp. Seen Dr Farr about a month ago He was started on metformin. Insulin was added about 5 years ago. Jardiance was added by Dr Farr and was told to stop glimepiride. Jardiance causedhim to have frequent urination and was switched to Trulicity. He never started Trulicity and he started back on glimepiride. States his bg levels are 115- 280 Breakfast: coffee and cookies Lunch: sub Dinner: fast food- sandwich or home meals: burger, steak. Snacks: chips Drinks; black coffee, regular powerade (2 a day) Exercise: none Hypoglycemia: none SUBJECTIVE: PROBLEM LIST SOCIAL ALLERGIES: Patient Active Problem List Diagnosis Abdominal aortic aneurysm (CMS/HCC) Asthenia Carpal tunnel syndrome Osteoarthritis of carpometacarpal (CMC) joint of thumb 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) Dyslipidemia (CMS/HCC) Plantar fasciitis S/P cervical spinal fusion Thrombocytopenic disorder (CMS/HCC) Type 2 diabetes mellitus with hyperglycemia, with long-term current use of insulin (CMS/HCC) Social History Tobacco Use Smoking status: Former Types: Cigarettes Smokeless tobacco: Never Substance Use Topics Alcohol use: Not Currently Drug use: Never No Known Allergies Synopsis [facility] 12/17/2023 12/14/2023 11/14/2023 00:00 Antidiabetic medications Dulaglutide 0.75 mg Weekly SC (0.75 MG/0.5ML SOPN) -Discontinued Dulaglutide 0.75 mg Weekly SC Empagliflozin 25 mg Daily PO (25 MG TABS)-Discontinued 25 mg Daily PO (25 MG TABS) Glimepiride 4 mg Daily before breakfast PO (4 MG TABS)-Discontinued 4 mg Daily before breakfast PO (4 MG TABS) 4 mg Daily before breakfast PO (4 MG TABS) No sig Insulin Aspart (100 UNIT/ML SOPN) -Discontinued Insulin Detemir 40 Units q AM SC (100 UNIT/ML SOPN)-Discontinued (Dose adjustm) 40 Units q AM SC (100 UNIT/ML SOPN) Insulin Detemir 55 Units q AM SC Insulin Lispro 18 units qAC (100 UNIT/ML SOPN)-Discontinued (Dose adjustm) 18 units qAC (100 UNIT/ML SOPN) Insulin Lispro 12 units small meals and 24 units large meals (max daily 36 units) (100 UNIT/ML SOPN) metFORMIN HCl 500 mg BID with meals PO (500 MG TABS) 500 mg BID with meals PO (500 MG TABS) 500 mg BID with meals PO (500 MG TABS) No sig Outpatient prescription Medication marked as long-term Patient-reported medication REVIEW OF SYMPTOMS: Review of Systems Constitutional: Positive for fatigue. Negative for appetite change and unexpected weight change. Eyes: Negative for visual disturbance. Respiratory: Negative for cough, shortness of breath and wheezing. Cardiovascular: Negative for chest pain, palpitations and leg swelling. Neurological: Positive for numbness. Endocrine: Negative for polydipsia, polyphagia and polyuria. OBJECTIVE: 12/14/2023 10:03 AM Vitals BMI 27.16 kg/m2 Systolic 124 Diastolic 70 Heart Rate 75 Temp 98.7 F Height (in) 6' 6 Weight (lb) 235 Visit Report Report Physical Exam Constitutional: General: He is not in acute distress. Appearance: Normal appearance. Cardiovascular: Rate and Rhythm: Normal rate and regular rhythm. Heart sounds: No murmur heard. No friction rub. No gallop. Pulmonary: Breath sounds: Normal breath sounds. No wheezing, rhonchi or rales. Musculoskeletal: General: No swelling. Neurological: Mental Status: He is alert. ASSESSMENT AND PLAN: Problem List Items Addressed This Visit 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) - Primary During the appointment today all pertinent labs, imaging, health maintenance, and glucose readings were reviewed. Encouraged to check blood glucose throughout the day with some fasting and some PP readings. They are to bring their glucose meter/cgm in to all appointments. All of the patients questions, treatment options, and current care plan and goals were discussed. A copy of this along with pertinent instructions were given to the patient at the end of the appointment. The patient voices understanding of all of this and is to call in between appointments if they have any problems or questions. Mino Vanessa is struggling to gain control of their diabetes. I am very concerned for diabetes related complications. , Discussed dietary changes at length. Encouraged to limit simple carbs and focus more on healthy protein/fat with all meals and snacks. They should also avoid any sugary drinks. , Discussed importance of checking blood glucose regularly and bringing them in to their appointment in order for me to better adjust their medications. , Instructed on the importance of taking insulin before eating. If it has been more than 30-45 min since eating they should not give the meal dose but should just give a correction insulin dose. , Instructed on the proper insulin injection technique either in the abdomen, upper outer thigh, or back of the arm. They are to rotate injection sites to prevent scar tissue. , Instructions given today include: Hypoglycemia management, Sick day management, Insulin instructions, Dietary education, and Management with exercise/activity. Will increase levemir and adjust his humalog. Ok to start trulicity. Will stop glimepiride to decrease the risk for hypoglycemia since he is on prandial insulin. Will work on getting him a catrachita 3 cgm. Relevant Medications dulaglutide (Trulicity) 0.75 MG/0.5ML solution pen-injector Continuous Glucose Sensor (FreeStyle Catrachita 3 Sensor) misc Continuous Glucose Meter Reading Clerk (FreeStyle Catrachita 3 [place]) device Follow up in about 4 weeks (around 01/11/2024) for Recheck. Patient's Medications New Prescriptions CONTINUOUS GLUCOSE PHOTOGRAPHER APPRENTICE (FREESTYLE CATRACHITA 3 READER) DEVICE 1 Device See administration instructions CONTINUOUS GLUCOSE SENSOR (FREESTYLE CATRACHITA 3 SENSOR) MISC Inject 1 Device under the skin every 14 (fourteen) days DULAGLUTIDE (TRULICITY) 0.75 MG/0.5ML SOLUTION PEN-INJECTOR Inject 0.75 mg under the skin 1 (one) time per week Previous Medications ASPIRIN 81 MG EC TABLET Take 1 tablet by mouth Daily ATORVASTATIN (LIPITOR) 40 MG TABLET Take 40 mg by mouth Daily B-D UF III MINI PEN NEEDLES 31G X 5 MM MISC Use with injections LISINOPRIL 5 MG TABLET Take 5 mg by mouth Daily METFORMIN (GLUCOPHAGE) 500 MG TABLET Take 500 mg by mouth in the morning and 500 mg in the evening. Take with meals. Modified Medications Modified Medication Previous Medication HUMALOG KWIKPEN 100 UNIT/ML INJECTION HumaLOG KWIKPEN 100 UNIT/ML injection 12 units small meals and 24 units large meals (max daily 36 units) 18 units qAC LEVEMIR FLEXTOUCH 100 UNIT/ML PEN Levemir FlexTouch 100 UNIT/ML pen Inject 55 Units under the skin in the morning. Inject 40 Units under the skin in the morning. Discontinued Medications AMOXICILLIN-CLAVULANATE (AUGMENTIN) 500-125 MG TABLET Take 1 tablet by mouth in the morning and 1 tablet in the evening and 1 tablet before bedtime. CEPHALEXIN (KEFLEX) 500 MG CAPSULE COLESEVELAM (WELCHOL) 625 MG TABLET Take 3 tablets by mouth in the morning and 3 tablets in the evening. Take with meals. CYCLOBENZAPRINE (FLEXERIL) 10 MG TABLET Take 10 mg by mouth 3 (three) times a day as needed for muscle spasms DICLOFENAC (VOLTAREN) 75 MG EC TABLET Take 75 mg by mouth DIPHENOXYLATE-ATROPINE (LOMOTIL) 2.5-0.025 MG TABLET FLUOROURACIL (EFUDEX) 5 % CREAM GABAPENTIN (NEURONTIN) 100 MG CAPSULE Take 1 capsule by mouth 1 (one) time each day at the same time GLIMEPIRIDE (AMARYL) 4 MG TABLET Take 4 mg by mouth in the morning. Take before meals. HYDROCODONE-ACETAMINOPHEN (NORCO) 5-325 MG TABLET INSULIN ASPART (NOVOLOG FLEXPEN) 100 UNIT/ML PEN JARDIANCE 25 MG Take 25 mg by mouth Daily MELOXICAM (MOBIC) 15 MG TABLET Take 15 mg by mouth Daily TRULICITY 0.75 MG/0.5ML SOLUTION PEN-INJECTOR Inject 0.75 mg under the skin 1 (one) time per week I have reviewed and reconciled the history and medication list with the patient today. documented in this encounter [facility] Evaluation note Diagnosis Onset Date Abscess of right buttock acu te [facility] Work Phone: Evaluation note* Diagnosis Type 2 diabetes mellitus with hyperglycemia, with long-term current use of insulin (CMS/HCC)- Primary 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) documented in this encounter [facility] HealthcareEvaluation [facility]* Diagnosis 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)- Primary [facility] Diagnosis 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)- Primary Type 2 diabetes mellitus with hyperglycemia, with long-term current use of insulin (CMS/HCC)- Primary 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) 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) documented in this encounter [facility] Summary Purpose Family History Relationship Condition Age at Onset Recorded Date/T germán father Heart disease Unknown Advance Directives Advance Directive Response Recorded Date/ Time Advance [...] and content) DATE CREATED AUTHOR 07/24/2021 [facility] DATE CREATED AUTHOR AUTHOR'S ORGANIZ ATION 05/04/2022 [facility] DATE CREATED AUTHOR AUTHOR'S ORGANIZ ATION 10/11/2023 [facility] DATE CREATED AUTHOR AUTHOR'S ORGANIZ ATION 01/27/2024 [facility] EPIC Care Teams (unrecognized sec [...] October 07, 2023 End: October 07, 2023 [employer] Install[employer] Relationship Specialty Start Date End Date Unallocated, Radha Vilchis MD [id number] [place] [address] PCP - General Family Medicine 04/29/24 Goals (unrecognized section and content) Goals may be documented in a n alternate sectionGoals may be documented in an alternate section Reason for Visit (unrecogniz ed section and content) Reason Comments Diabetes Reason Comments new diabetes only appt FOR RECORDS PERTAINING TO PATIENTS WHO ARE [...] BE BASED ON THE PRIMARY CLINICAL RECORDS. [facility]. provides no warranty or guarantee of the accuracy or completeness of information in this document.
== END 2024-05-05 08:42 | disposition home or self-care (01) ==
LOC: US 08:42
PROVIDERS: PCP Nurse Practitioner Family; Visit Provider Nurse Practitioner Family
DX: I71.40 Abdominal aortic aneurysm, without rupture, unspecified (principal)
CPT/HCPCS: 76775